=== PATIENT | female | born 1935 | race African-American/Black ===

== ENCOUNTER → 2016-04-30 | Outpatient (CLI) | payer MEDICARE ==
[2016-04-30 17:00] LABS: ABSOLUTE EOSINOPHILS # (AUTO) 0.1 10^3/uL (0.0-0.6); ABSOLUTE LYMPHOCYTES (AUTO) 1.2 10^3/uL (0.5-4.7); ABSOLUTE MONOCYTES (AUTO) 0.3 10^3/uL (0.1-1.4); ABSOLUTE NEUT (AUTO) 3.9 10^3/uL (1.7-8.2); BASOPHILS % (AUTO) 0.9 % (0-2); EOSINOPHILS % (AUTO) 1.3 % (0-6); HEMATOCRIT 27.2 % (36.0-47.0); HEMOGLOBIN 9.2 g/dL (12.0-15.5); HGB HCT DIFFERENCE 0.4; LYMPHOCYTES % (AUTO) 21.4 % (13-45); MEAN CORPUSCULAR VOLUME 97 fl (80-97); MONOCYTES % (AUTO) 6.2 % (3-13); RED BLOOD COUNT 2.79 10^6/uL (3.72-5.28); RED CELL DISTRIBUTION WIDTH 16.4 % (11.5-14.0); SEGMENTED NEUTROPHILS % (AUTO) 70.2 % (42-78); WHITE BLOOD COUNT 5.6 10^3/uL (4.0-10.5)
[2016-04-30 17:06] LABS: APPEARANCE,URINE SLIGHTLY-CLOUDY; BILIRUBIN,URINE NEGATIVE (NEGATIVE); GLUCOSE, URINE NEGATIVE (NEGATIVE); KETONES,URINE NEGATIVE (NEGATIVE); LEUKOCYTE ESTERASE,URINE LARGE (NEGATIVE); NITRITE,URINE NEGATIVE (NEGATIVE); PROTEIN,URINE NEGATIVE (NEGATIVE); URINE SPECIFIC GRAVITY 1.009; UROBILINOGEN,URINE NEGATIVE mg/dL (<2.0)
[2016-04-30 17:21] LABS: ALBUMIN 3.6 g/dL (3.5-5.0); ANION GAP 8 (5-19); BLOOD UREA NITROGEN 48 mg/dL (7-20); CALCIUM 9.4 mg/dL (8.4-10.2); CARBON DIOXIDE 32 mmol/L (22-30); CHLORIDE 98 mmol/L (98-107); CREATININE RESULT 3.72 mg/dL (0.52-1.25); GLUCOSE 109 mg/dL (75-110); PHOSPHORUS 4.6 mg/dL (2.5-4.5); POTASSIUM 4.5 mmol/L (3.6-5.0); SODIUM 138.3 mmol/L (137-145)
[2016-05-02 07:15] LABS: VITAMIN D 25-HYDROXY 33.9 ng/mL (30.0-100.0)
[2016-05-02 11:40] LABS: CREATININE URINE 55.6 mg/dL (Not Estab.); MICROALBUMIN URINE 11.4 ug/mL (Not Estab.)
== END ==
LOC: OD 15:43
PROVIDERS: ATTEND Internal Medicine Nephrology
DX: N18.4 Chronic kidney disease, stage 4 (severe) (principal); D63.1 Anemia in chronic kidney disease; N25.81 Secondary hyperparathyroidism of renal origin
CPT/HCPCS: 36415; 80048; 81001; 82040; 82043; 82306; 82570; 82728; 83540; 83550; 83970; 84100; 85025

== ENCOUNTER 2016-05-28 06:53 | Day surgery (SDC) | payer MEDICARE ==
[2016-05-25 11:39] LABS: HEMATOCRIT 27.1 % (36.0-47.0); HEMOGLOBIN 9.1 g/dL (12.0-15.5); HGB HCT DIFFERENCE 0.2; MEAN CORPUSCULAR HEMOGLOBIN 32.8 pg (27.0-33.4); MEAN CORPUSCULAR HGB CONC 33.5 g/dL (32.0-36.0); MEAN CORPUSCULAR VOLUME 98 fl (80-97); RED BLOOD COUNT 2.77 10^6/uL (3.72-5.28); RED CELL DISTRIBUTION WIDTH 17.7 % (11.5-14.0); WHITE BLOOD COUNT 5.8 10^3/uL (4.0-10.5)
[2016-05-25 11:58] LABS: ANION GAP 12 (5-19); BLOOD UREA NITROGEN 43 mg/dL (7-20); CALCIUM 9.5 mg/dL (8.4-10.2); CARBON DIOXIDE 31 mmol/L (22-30); CHLORIDE 101 mmol/L (98-107); CREATININE RESULT 3.31 mg/dL (0.52-1.25); GLUCOSE 95 mg/dL (75-110); POTASSIUM 4.8 mmol/L (3.6-5.0); SODIUM 144.4 mmol/L (137-145)
--- NOTE | 2016-05-26 16:06 | EKG REPORT ---
SEVERITY:- ABNORMAL ECG - SINUS RHYTHM FIRST DEGREE AV BLOCK BORDERLINE PROLONGED QT INTERVAL : Confirmed by: Darcy Restrepo MD 26-May-2016 16:05:23
[~2016-05-28 06:53] MED LIST: CLINDAMYCIN 600 MG/D5W RTU 600 MG/50 ML RTUPB IV PRN; LIDOCAINE 0.5% INJ-PF (5 MG/ML) 50 ML SDV INJ PRN; NORMAL SALINE 500 ML IV PRN
[2016-05-28] MEDS ORDERED: BUPIVACAINE HCL 0.25 % INJ/PF (2.5 MG/1 ML) 30 ML VIAL ONE (08:13)
[2016-05-28] MEDS ORDERED: HEPARIN SOD (PORCINE) 1,000 UNIT/ML 10 ML VIAL ONE (08:13)
[2016-05-28] MEDS ORDERED: LIDOCAINE 1% INJ-PF (10 MG/ML) 30 ML SDV ONE (08:13)
[2016-05-28] MEDS ORDERED: BACITRACIN INJ 50,000 UNIT VIAL ONE (08:13)
[2016-05-28] MEDS ORDERED: LIDOCAINE 0.5% INJ-PF (5 MG/ML) 50 ML SDV ONE (08:13)
[2016-05-28] MEDS ORDERED: MIDAZOLAM 2 MG/2 ML INJ ONE (09:01)
[2016-05-28] MEDS ORDERED: DEXMEDETOMIDINE INJ 80 MCG/20 ML VIAL IV ONE (09:02)
[2016-05-28] MEDS ORDERED: PROPOFOL INJ 200 MG/20 ML VIAL IV ONE (09:02)
[2016-05-28] MEDS ORDERED: NITROGLYCERIN/D5W 0 MG/0 ML RTUINJ IV ONE (09:19)
--- NOTE | 2016-05-28 11:07 | PDOC DISCHARGE SUMMARY ---
Discharge Summary (SDC) - Discharge Final Diagnosis: #1 end-stage renal disease. #2 diabetes mellitus. #3 rheumatoid arthritis. #4 hypertension. Date of Surgery: 05/28/16 Discharge Date: 05/28/16 Condition: Fair Treatment or Instructions: #1 activities within moderation encouraged. #2 follow up in my office by appointment in about 1 week. Call for appointment. #3 the wounds covered clean and dry until office visit. #4 hold off on school/work until evaluation in office. #5 may shower in 48 hours, keep operated area as dry as possible. #6 discharge from ambulatory when ASU criteria met. #7 medications per medication reconciliation sheet. #8 Percocet by prescription.. Also may have one Percocet up to every 4 hours when necessary for pain greater than 4 out of 10 while in the ASU Prescriptions: Oxycodone HCl/Acetaminophen [Percocet 5-325 mg Tablet] 1 tab PO ASDIR PRN #15 tab PRN Reason: Discharge Diet: Other (Comments) - Diabetic, renal. Respiratory Treatments at Home: Deep Breathing/Coughing Discharge Activity: Activity As Tolerated Report the Following to Your Physician Immediately: Shortness of Breath, Unusual Bleeding
[2016-05-28] MEDS ORDERED: FENTANYL CITRATE INJ/PF 100 MCG/2 ML AMPUL IV PRN ×3 (11:11)
[2016-05-28] MEDS ORDERED: DIPHENHYDRAMINE HCL 50 MG/ML VIAL IV PRN (11:11)
[2016-05-28] MEDS ORDERED: MEPERIDINE HCL/PF INJ 25 MG/1 ML DISP.SYRIN IV PRN (11:11)
[2016-05-28] MEDS ORDERED: PROMETHAZINE HCL INJ 25 MG/1 ML VIAL IV PRN (11:11)
[2016-05-28] MEDS ORDERED: MORPHINE SULFATE 10 MG/ML INJ IV PRN (11:11)
--- NOTE | 2016-05-28 11:12 | Operative Report ---
Operative Report DATE OF SURGERY: 05/28/16 PREOPERATIVE DIAGNOSIS: #1 end-stage renal disease. #2 diabetes mellitus. #3 rheumatoid arthritis. #4 hypertension. POSTOPERATIVE DIAGNOSIS: #1 end-stage renal disease. #2 diabetes mellitus. #3 rheumatoid arthritis. #4 hypertension. OPERATION: Insertion of right brachiocephalic fistula. SURGEON: CHI PEARSON COLLEGE SCOUTING COORDINATOR: none ANESTHESIA: LMAC TISSUE REMOVED OR ALTERED: Not applicable. COMPLICATIONS: None ESTIMATED BLOOD LOSS: 5 mL. INTRAOPERATIVE FINDINGS: Of a satisfactory cephalic vein which accommodated a 4 mm coronary dilator up to 15 cm with ease. Of a brachial artery which was moderately diseased with some atherosclerotic plaque but fairly soft. Satisfactory anastomosis with a good thrill and bruit at the end of the procedure. Doppler signals were appropriate with the slurred waveform in the proximal brachial artery and a multiphasic signal in the within the brachial artery distal to the anastomosis. Tedious rumbling bruit in the fistula. PROCEDURE: Operative Report PROCEDURE: After reviewing the procedure with the patient, [she] was taken to the operating room. The patient was sedated and the [right upper extremity] prepared with chlorhexidine and draped out with sterile linen. After the "" universal timeout", in which it was verified that the patient [received IV antibiotics] the procedure commenced. The sterilely sheathed ultrasound probe was used to evaluate the venous and arterial systems, pertinent to the previously done vein mapping. Local anesthesia was infiltrated and a transverse incision made over the upper forearm , near the antecubital fossa. Dissection proceeded through the subcutaneous tissues down to the cephalic vein. This was dissected out proximally and distally for about 3 cm. Likewise major branches. The Bicipital aponeurosis was now incised longitudinally and the brachial artery dissected out for a distance of about 1.5 cm. Rubber loops were placed on either end. The patient was given 2500 units of heparin intravenously. The deep and distal branches of the cephalic vein were clipped distally and transected. Coronary dilators were accepted [up to 4 mm]. The artery was controlled proximally and distally with rubber loops. An arteriotomy approximately [1 cm] in length was made, the artery was irrigated proximally and distally with heparinized solution. The transected vein was now spatulated , it was then anastomosed end to end to side into the brachial artery. This was done using a continuous suture of 6-0 Prolene. Controls of the fistula were now released and it was analyzed using a Doppler probe. Hemostasis was secured once optimal function was assured, the wound was irrigated with antibiotic containing solution and closed. Closure was done using interrupted 3-0 PDS for the subcutaneous tissues. The skin was closed using a continuous subcutaneous suture of 4-0 Monocryl which was reinforced with Steri-Strips over benzoin. I then left the operative field and returned with a stethoscope covered with a sterile Tegaderm dressing. This allowed external auscultation of the fistula. Auscultation was [satisfactory]. The procedure was concluded by applying a Kerlix dressing over the surgical site. DICTATING PHYSICIAN: CHI WADDELL M.D.
[2016-05-28 12:54] VITALS: BP 144/54
== END 2016-05-28 12:59 | disposition home or self-care (01) ==
LOC: OROUT 06:53
PROVIDERS: ATTEND Surgery
PROC: 05SF0ZZ Reposition Left Cephalic Vein, Open Approach (ICD-10-PCS; principal; 2016-05-28 09:00)
DX: I13.2 Hypertensive heart and chronic kidney disease with heart failure and with stage 5 chronic kidney disease, or end stage renal disease (principal); I50.9 Heart failure, unspecified; D63.1 Anemia in chronic kidney disease; E11.22 Type 2 diabetes mellitus with diabetic chronic kidney disease; N18.6 End stage renal disease; M06.9 Rheumatoid arthritis, unspecified; Z79.899 Other long term (current) drug therapy; Z79.82 Long term (current) use of aspirin; Z88.0 Allergy status to penicillin
CPT/HCPCS: 93005; 36415 ×2; 82962; 84132; 85027; 80048; 71020; 93010; 36818; J2250; J3490 ×4; J1644; J2704; 1844

== ENCOUNTER → 2016-07-16 | Outpatient (CLI) | payer MEDICARE ==
[2016-07-16 14:17] LABS: ABSOLUTE LYMPHOCYTES (AUTO) 1.2 10^3/uL (0.5-4.7); ABSOLUTE MONOCYTES (AUTO) 0.4 10^3/uL (0.1-1.4); ABSOLUTE NEUT (AUTO) 3.9 10^3/uL (1.7-8.2); BASOPHILS % (AUTO) 0.7 % (0-2); EOSINOPHILS % (AUTO) 0.1 % (0-6); HEMATOCRIT 24.3 % (36.0-47.0); HEMOGLOBIN 8.1 g/dL (12.0-15.5); LYMPHOCYTES % (AUTO) 21.5 % (13-45); MEAN CORPUSCULAR HEMOGLOBIN 33.2 pg (27.0-33.4); MEAN CORPUSCULAR HGB CONC 33.4 g/dL (32.0-36.0); MEAN CORPUSCULAR VOLUME 100 fl (80-97); MONOCYTES % (AUTO) 6.4 % (3-13); RED BLOOD COUNT 2.45 10^6/uL (3.72-5.28); RED CELL DISTRIBUTION WIDTH 18.7 % (11.5-14.0); SEGMENTED NEUTROPHILS % (AUTO) 71.3 % (42-78); WHITE BLOOD COUNT 5.5 10^3/uL (4.0-10.5)
[2016-07-16 14:31] LABS: ANION GAP 9 (5-19); BLOOD UREA NITROGEN 46 mg/dL (7-20); CALCIUM 9.4 mg/dL (8.4-10.2); CARBON DIOXIDE 29 mmol/L (22-30); CHLORIDE 100 mmol/L (98-107); CREATININE RESULT 3.17 mg/dL (0.52-1.25); GLUCOSE 154 mg/dL (75-110); PHOSPHORUS 3.6 mg/dL (2.5-4.5); POTASSIUM 4.9 mmol/L (3.6-5.0); SODIUM 138.4 mmol/L (137-145)
== END ==
LOC: OD 13:19
PROVIDERS: ATTEND Internal Medicine Nephrology
DX: N18.5 Chronic kidney disease, stage 5 (principal); N25.81 Secondary hyperparathyroidism of renal origin; D63.1 Anemia in chronic kidney disease
CPT/HCPCS: 36415; 80048; 83970; 84100; 85025

== ENCOUNTER → 2016-10-11 | Outpatient (CLI) | payer MEDICARE ==
[2016-10-11 18:10] LABS: ABSOLUTE LYMPHOCYTES (AUTO) 1.3 10^3/uL (0.5-4.7); ABSOLUTE MONOCYTES (AUTO) 0.3 10^3/uL (0.1-1.4); ABSOLUTE NEUT (AUTO) 3.4 10^3/uL (1.7-8.2); EOSINOPHILS % (AUTO) 0.9 % (0-6); HEMATOCRIT 27.8 % (36.0-47.0); HEMOGLOBIN 9.3 g/dL (12.0-15.5); HGB HCT DIFFERENCE 0.1; LYMPHOCYTES % (AUTO) 25.9 % (13-45); MEAN CORPUSCULAR HEMOGLOBIN 33.5 pg (27.0-33.4); MEAN CORPUSCULAR HGB CONC 33.6 g/dL (32.0-36.0); MEAN CORPUSCULAR VOLUME 100 fl (80-97); MONOCYTES % (AUTO) 6.4 % (3-13); RED BLOOD COUNT 2.79 10^6/uL (3.72-5.28); RED CELL DISTRIBUTION WIDTH 17.9 % (11.5-14.0); SEGMENTED NEUTROPHILS % (AUTO) 65.8 % (42-78); WHITE BLOOD COUNT 5.1 10^3/uL (4.0-10.5)
[2016-10-11 18:21] LABS: APPEARANCE,URINE SLIGHTLY-CLOUDY; BILIRUBIN,URINE NEGATIVE (NEGATIVE); GLUCOSE, URINE NEGATIVE (NEGATIVE); KETONES,URINE NEGATIVE (NEGATIVE); LEUKOCYTE ESTERASE,URINE MODERATE (NEGATIVE); NITRITE,URINE NEGATIVE (NEGATIVE); PROTEIN,URINE NEGATIVE (NEGATIVE); URINE SPECIFIC GRAVITY 1.006; UROBILINOGEN,URINE NEGATIVE mg/dL (<2.0)
[2016-10-11 18:30] LABS: ANION GAP 11 (5-19); BLOOD UREA NITROGEN 61 mg/dL (7-20); CALCIUM 9.3 mg/dL (8.4-10.2); CARBON DIOXIDE 29 mmol/L (22-30); CHLORIDE 100 mmol/L (98-107); CREATININE RESULT 3.33 mg/dL (0.52-1.25); GLUCOSE 144 mg/dL (75-110); SODIUM 139.9 mmol/L (137-145)
[2016-10-13 10:37] LABS: CREATININE URINE 45.3 mg/dL (Not Estab.); MICROALBUMIN URINE 14.4 ug/mL (Not Estab.)
== END ==
LOC: OD 17:13
PROVIDERS: ATTEND Internal Medicine Nephrology
DX: N18.4 Chronic kidney disease, stage 4 (severe) (principal); D63.1 Anemia in chronic kidney disease
CPT/HCPCS: 36415; 80048; 81001; 82043; 82570; 82728; 83540; 83550; 85025

== ENCOUNTER → 2016-11-22 | Outpatient (CLI) | payer MEDICARE ==
[2016-11-22 11:26] LABS: ABSOLUTE LYMPHOCYTES (AUTO) 1.1 10^3/uL (0.5-4.7); ABSOLUTE MONOCYTES (AUTO) 0.4 10^3/uL (0.1-1.4); ABSOLUTE NEUT (AUTO) 3.6 10^3/uL (1.7-8.2); BASOPHILS % (AUTO) 0.9 % (0-2); EOSINOPHILS % (AUTO) 0.5 % (0-6); HEMATOCRIT 26.2 % (36.0-47.0); HEMOGLOBIN 8.8 g/dL (12.0-15.5); HGB HCT DIFFERENCE 0.2; LYMPHOCYTES % (AUTO) 21.7 % (13-45); MEAN CORPUSCULAR HEMOGLOBIN 33.4 pg (27.0-33.4); MEAN CORPUSCULAR HGB CONC 33.7 g/dL (32.0-36.0); MEAN CORPUSCULAR VOLUME 99 fl (80-97); MONOCYTES % (AUTO) 8.3 % (3-13); RED BLOOD COUNT 2.64 10^6/uL (3.72-5.28); RED CELL DISTRIBUTION WIDTH 17.9 % (11.5-14.0); SEGMENTED NEUTROPHILS % (AUTO) 68.6 % (42-78); WHITE BLOOD COUNT 5.2 10^3/uL (4.0-10.5)
[2016-11-22 11:46] LABS: ANION GAP 11 (5-19); BLOOD UREA NITROGEN 78 mg/dL (7-20); CALCIUM 9.7 mg/dL (8.4-10.2); CARBON DIOXIDE 28 mmol/L (22-30); CHLORIDE 99 mmol/L (98-107); CREATININE RESULT 4.58 mg/dL (0.52-1.25); GLUCOSE 108 mg/dL (75-110); POTASSIUM 4.3 mmol/L (3.6-5.0); SODIUM 138.2 mmol/L (137-145)
== END ==
LOC: OD 10:22
PROVIDERS: ATTEND Internal Medicine Nephrology
DX: N17.9 Acute kidney failure, unspecified (principal); N18.9 Chronic kidney disease, unspecified
CPT/HCPCS: 36415; 80048; 85025

== ENCOUNTER → 2016-12-03 | Outpatient (CLI) | payer MEDICARE ==
[2016-12-04 08:41] LABS: HEPATITIS C VIRUS AB 0.2 s/co ratio (0.0-0.9)
== END ==
LOC: OD 12:42
PROVIDERS: ATTEND Internal Medicine Nephrology
DX: I13.10 Hypertensive heart and chronic kidney disease without heart failure, with stage 1 through stage 4 chronic kidney disease, or unspecified chronic kidney disease (principal); N18.5 Chronic kidney disease, stage 5; E11.9 Type 2 diabetes mellitus without complications
CPT/HCPCS: 36415; 86317; 86704; 86803; 86804; 87340

== ENCOUNTER → 2017-01-22 | Outpatient (CLI) | payer MEDICARE ==
--- NOTE | 2017-01-22 15:34 | RADIOLOGY REPORT (SQ) ---
EXAM DESCRIPTION: CT CHEST WITHOUT COMPLETED DATE/TIME: 01/22/2017 2:27 pm REASON FOR STUDY: EXPOSURE TO TB (Z20.1),BRONCHITIS (J40), PULMONARY INFILTRATE (R91.8) R91.8 OTHER NONSPECIFIC ABNORMAL FINDING OF LUNG FIELD COMPARISON: None. TECHNIQUE: CT scan performed of the chest without intravenous contrast. Images reviewed with lung, soft tissue and bone windows. Reconstructed coronal and sagittal MPR images reviewed. All images st ored on PACS. All CT scanners at this facility use dose modulation, iterative reconstruction, and/or weight based d osing when appropriate to reduce radiation dose to as low as reasonably achievable (ALARA). [facility]: Dose Right [facility]: CareDose [facility]: Dose Right [facility]: Teradose 4D [facility]: [employer] RADIATION DOSE: Up-to-date CT equipment and radiation dose reduction techniques were employed. CTDIv ol: 9.0 mGy. DLP: 329 mGy-cm. mGy. LIMITATIONS: No technical limitations. FINDINGS: LUNGS AND PLEURA: There is a subpleural calcified granuloma on the right. There is no pul monary infiltrate or pleural effusion. There appears to be mild subsegmental atelectasis the left ba se. HILAR AND MEDIASTINAL STRUCTURES: No identified masses or abnormal nodes. No obvious aneurysm. HEART AND VASCULAR STRUCTURES: No aneurysm. No pericardial effusion. UPPER ABDOMEN: No significant findings. Limited exam. THYROID AND OTHER SOFT TISSUES: No masses. No adenopathy. BONES: Thoracic spondylosis. There is a small cystic lesion in 1 of the lower thoracic vertebrae, po ssibly T9. HARDWARE: None in the chest. OTHER: No other significant findings. IMPRESSION: There is no evidence of active or prior pulmonary tuberculosis. TECHNICAL DOCUMENTATION: JOB ID: [id number] Quality ID # [id number]: Final reports with documentation of one or more dose reduction techniques (e.g., Au tomated exposure control, adjustment of the mA and/or kV according to patient size, use of iterative reconstruction technique) 2010 [employer]- All Rights Reserved
== END ==
LOC: RAD 13:58
PROVIDERS: ATTEND Internal Medicine Critical Care Medicine
DX: E11.22 Type 2 diabetes mellitus with diabetic chronic kidney disease (principal); I12.9 Hypertensive chronic kidney disease with stage 1 through stage 4 chronic kidney disease, or unspecified chronic kidney disease; N18.4 Chronic kidney disease, stage 4 (severe); Z20.1 Contact with and (suspected) exposure to tuberculosis; Z92.89 Personal history of other medical treatment; R91.8 Other nonspecific abnormal finding of lung field
CPT/HCPCS: 71250

== ENCOUNTER → 2017-01-24 | Outpatient (CLI) | payer MEDICARE ==
[2017-01-24 12:12] LABS: ABSOLUTE BASOPHILS # (AUTO) 0.1 10^3/uL (0.0-0.2); ABSOLUTE EOSINOPHILS # (AUTO) 0.3 10^3/uL (0.0-0.6); ABSOLUTE LYMPHOCYTES (AUTO) 1.5 10^3/uL (0.5-4.7); ABSOLUTE MONOCYTES (AUTO) 0.4 10^3/uL (0.1-1.4); ABSOLUTE NEUT (AUTO) 4.8 10^3/uL (1.7-8.2); BASOPHILS % (AUTO) 0.9 % (0-2); EOSINOPHILS % (AUTO) 3.6 % (0-6); HEMATOCRIT 31.1 % (36.0-47.0); HEMOGLOBIN 10.5 g/dL (12.0-15.5); HGB HCT DIFFERENCE 0.4; LYMPHOCYTES % (AUTO) 21.4 % (13-45); MEAN CORPUSCULAR HEMOGLOBIN 33.4 pg (27.0-33.4); MEAN CORPUSCULAR HGB CONC 33.7 g/dL (32.0-36.0); MEAN CORPUSCULAR VOLUME 99 fl (80-97); RED BLOOD COUNT 3.14 10^6/uL (3.72-5.28); RED CELL DISTRIBUTION WIDTH 20.3 % (11.5-14.0); SEGMENTED NEUTROPHILS % (AUTO) 68.1 % (42-78)
[2017-01-24 12:42] LABS: ALANINE AMINOTRANSFERASE 41 U/L (9-52); ALBUMIN 3.9 g/dL (3.5-5.0); ALKALINE PHOSPHATASE 108 U/L (38-126); ANION GAP 12 (5-19); ASPARTATE AMINO TRANSFERASE 34 U/L (14-36); BILIRUBIN,DIRECT 0.4 mg/dL (0.0-0.4); BILIRUBIN,TOTAL 0.5 mg/dL (0.2-1.3); BLOOD UREA NITROGEN 40 mg/dL (7-20); CALCIUM 9.2 mg/dL (8.4-10.2); CARBON DIOXIDE 32 mmol/L (22-30); CHLORIDE 99 mmol/L (98-107); CREATININE RESULT 3.53 mg/dL (0.52-1.25); GLUCOSE 73 mg/dL (75-110); POTASSIUM 4.2 mmol/L (3.6-5.0); SODIUM 143.3 mmol/L (137-145); TOTAL PROTEIN 6.7 g/dL (6.3-8.2)
== END ==
LOC: OD 11:31
PROVIDERS: ATTEND Internal Medicine Critical Care Medicine
DX: I50.9 Heart failure, unspecified (principal); I25.10 Atherosclerotic heart disease of native coronary artery without angina pectoris; D64.9 Anemia, unspecified; N18.4 Chronic kidney disease, stage 4 (severe); E11.9 Type 2 diabetes mellitus without complications; R76.11 Nonspecific reaction to tuberculin skin test without active tuberculosis; Z20.1 Contact with and (suspected) exposure to tuberculosis; Z87.448 Personal history of other diseases of urinary system
CPT/HCPCS: 36415; 80053; 85025

== ENCOUNTER → 2017-05-17 | Outpatient (CLI) | payer MEDICARE ==
[2017-05-17 11:49] LABS: ALANINE AMINOTRANSFERASE 26 U/L (9-52); ALBUMIN 3.7 g/dL (3.5-5.0); ALKALINE PHOSPHATASE 97 U/L (38-126); ASPARTATE AMINO TRANSFERASE 28 U/L (14-36); BILIRUBIN,DIRECT 0.2 mg/dL (0.0-0.4); BILIRUBIN,TOTAL 0.3 mg/dL (0.2-1.3); TOTAL PROTEIN 5.6 g/dL (6.3-8.2)
== END ==
LOC: OD 10:23
PROVIDERS: ATTEND Internal Medicine Critical Care Medicine
DX: R76.11 Nonspecific reaction to tuberculin skin test without active tuberculosis (principal); N18.4 Chronic kidney disease, stage 4 (severe); R91.8 Other nonspecific abnormal finding of lung field; Z20.1 Contact with and (suspected) exposure to tuberculosis; I50.9 Heart failure, unspecified; Z92.89 Personal history of other medical treatment; Z87.39 Personal history of other diseases of the musculoskeletal system and connective tissue
CPT/HCPCS: 36415; 80076

== ENCOUNTER 2017-06-22 23:08 | Emergency (ER) | payer MEDICARE ==
[2017-06-23] MEDS ORDERED: ONDANSETRON HCL INJ/PF 4 MG/2 ML SDV IV ONE (00:50)
--- NOTE | 2017-06-23 00:52 | ER Document Report ---
ED General - General Chief Complaint: Other Stated Complaint: DIZZINESS Time Seen by Provider: 06/23/17 00:05 Notes: Patient is an 81 year old female with a past medical history of hypertension, hyperlipidemia, diabetes, chronic kidney disease with dialysis dependence who presents with 24 hours of diarrhea, one episode of vomiting and general fatigue. Patient at the time of my assessment states that she feels "pretty good" denies any specific complaints. Her family at the bedside reports the history of vomiting and diarrhea. They do note that she has been able to tolerate oral intake today. They state that overall she has been more sluggish over the past 4-5 days they are concerned about why she has been to deteriorating. She has not missed any sessions of dialysis. They have not seen a primary care doctor regarding today's concerns. Nothing seems to improve or worsen the patient's symptoms. Family is uncertain whether or not she has had similar symptoms in the past. The patient has not a fever, cough, shortness of breath, chest pain, headache or neck pain. TRAVEL OUTSIDE OF THE [place] IN LAST 30 DAYS: No - Related Data Allergies/Adverse Reactions: Penicillins Allergy (Severe, Verified 05/25/16 09:58) dizzy Past Medical History - General Information source: Patient, Relative - Social History Smoking Status: Never Smoker Frequency of alcohol use: None Drug Abuse: None Lives with: Family Family History: Reviewed & Not Pertinent Patient has suicidal ideation: No Patient has homicidal ideation: No - Past Medical History Cardiac Medical History: Reports: Hx Congestive Heart Failure, Hx Coronary Artery Disease - murmur, Hx Hypercholesterolemia, Hx Hypertension - on meds Denies: Hx Heart Attack Pulmonary Medical History: Denies: Hx Asthma, Hx Bronchitis, Hx COPD, Hx Pneumonia, Hx Tuberculosis Neurological Medical History: Denies: Hx Cerebrovascular Accident, Hx Seizures Endocrine Medical History: Reports: Hx Diabetes Mellitus Type 1 Renal/ Medical History: Denies: Hx End Stage Renal Disease, Hx Kidney Stones, Hx Peritoneal Dialysis GI Medical History: Reports: Hx Gastroesophageal Reflux Disease. Denies: Hx Cirrhosis, Hx Ulcer Musculoskeltal Medical History: Reports Hx Arthritis - RA, Denies Hx Multiple Sclerosis Psychiatric Medical History: Denies: Hx Bipolar Disorder, Hx Depression, Hx Schizophrenia Past Surgical History: Reports: Hx Appendectomy, Hx Gynecologic Surgery - Immunizations Hx Diphtheria, Pertussis, Tetanus Vaccination: Yes Hx Pneumococcal Vaccination: 01/25/16 Review of Systems - Review of Systems Notes: Constitutional: Negative for fever. HENT: Negative for sore throat. Eyes: Negative for visual changes. Cardiovascular: Negative for chest pain. Respiratory: Negative for shortness of breath. Gastrointestinal: Negative for abdominal pain, positive for vomiting and diarrhea Genitourinary: Negative for dysuria. Musculoskeletal: Negative for back pain. Skin: Negative for rash. Neurological: Negative for headaches, weakness or numbness. 10 point ROS negative except as marked above and in HPI. Physical Exam - Vital signs Vitals: Resp BP 10 L 120/46 L 06/22/17 23:18 06/22/17 23:18 Interpretation: Normal Notes: PHYSICAL EXAMINATION: GENERAL: Appears stated age. In no acute distress HEAD: Atraumatic, normocephalic. EYES: Pupils equal round and reactive to light, extraocular movements intact, sclera anicteric, conjunctiva are normal. ENT: nares patent, oropharynx clear without exudates. Moderately dry mucous membranes. NECK: Normal range of motion, supple without lymphadenopathy LUNGS: Breath sounds clear to auscultation bilaterally and equal. No wheezes rales or rhonchi. HEART: Regular rate and rhythm, 4 out of 6 systolic ejection murmur ABDOMEN: Soft, nontender, normoactive bowel sounds. No guarding, no rebound. No masses appreciated. EXTREMITIES: Normal range of motion, no pitting or edema. No cyanosis. NEUROLOGICAL: No focal neurological deficits. Moves all extremities spontaneously and on command. PSYCH: Normal mood, normal affect. SKIN: Warm, Dry, normal turgor, no rashes or lesions noted. Course - Re-evaluation Re-evalutation: 06/23/17 00:51 Patient presents complaining of general weakness with associated diarrhea and one episode of vomiting. Family states that she has had intermittent periods of lethargy over the past several days as well as periods of hypoglycemia. They know in particular in the morning her blood sugars tend to be in the low 40s to upper 30s. She does continue to take 12 units of Lantus at night recently dropped from 14 due to these episodes of hypoglycemia. I have instructed him to please drop this down to 8 units at night and discontinue the Lantus altogether if she continues to have severe hypoglycemia in the morning. On examination the patient has no focal findings. She is alert, oriented but does fall asleep easily. Vitals within normal limits. Will obtain basic laboratories, EKG, chest x-ray, p.o. challenge the patient and ambulate her and see how she does with these measures. 06/23/17 04:24 Patient was able to ambulate without any difficulty, has tolerated oral intake without difficulty. Labs unremarkable with exception of baseline chronic kidney dysfunction. I have asked me to the patient and family the exact etiology of her symptoms is uncertain although the family notes that she has had chronic diarrhea since starting dialysis and they have been working with her broadcast maintenance engineer regarding this chronic issue. She only had one episode of vomiting. She continues to have no focal abdominal pain and has tolerated oral intake for over 1 hour. At this time will discharge with return precautions and follow-up recommendations. Verbal discharge instructions given a the bedside and opportunity for questions given. Medication warnings reviewed. Patient is in agreement with this plan and has verbalized understanding of return precautions and the need for primary care follow-up in the next 24-72 hours. - Vital Signs Vital signs: Temp Pulse Resp BP Pulse Ox 13 127/48 H 96 06/23/17 04:01 06/23/17 04:18 06/23/17 04:01 - Laboratory Result Diagrams: 06/23/17 02:10 06/23/17 02:10 Laboratory results interpreted by me: 06/23/17 06/23/17 02:10 02:10 MCV 101 H RDW 16.9 H Sodium 136.3 L Chloride 96 L BUN 42 H Creatinine 4.19 H Est GFR ( Amer) 12 L Est GFR (Non-Af Amer) 10 L Glucose 136 H AST 73 H - Diagnostic Test Radiology reviewed: Image reviewed, Reports reviewed Radiology results interpreted by me: 06/23/17 03:33 Chest x-ray: No acute infiltrate or pneumothorax - EKG Interpretation by Me Additional EKG results interpreted by me: 06/23/17 03:34 Normal sinus rhythm. Rate 60. No ST elevations or depressions. QTC is 484. First-degree AV block is present. Discharge - Discharge Clinical Impression: Vomiting and diarrhea, General weakness Chronic kidney disease Qualifiers: Chronic kidney disease stage: on chronic dialysis Qualified Code(s): N18.6 - End stage renal disease Condition: Stable Disposition: HOME, SELF-CARE Additional Instructions: The exact cause of your symptoms is uncertain but is likely secondary to the vomiting and diarrhea that you have been having. Please continue to keep hydrated try to eat when you are able. Please follow-up with your primary care doctor in the next 24-48 hours. Your labs today do not show any concerning findings other than your chronic kidney disease. Please return to emergency department if you pass out, develop chest pain, persistent vomiting, headache, or any other symptoms that are worrisome to you.
--- NOTE | 2017-06-23 01:31 | RADIOLOGY REPORT (SQ) ---
EXAM DESCRIPTION: CHEST SINGLE VIEW CLINICAL HISTORY: 81 years Female, weakness, cough COMPARISON: CT, January 22, 2017. NUMBER OF VIEWS/TECHNIQUE: 1/AP FINDINGS: Adequate lung volume, chronic small calcified granuloma of the lateral right lung field, normal cardiac silhouette, and intact bony thorax. IMPRESSION: No acute cardiopulmonary findings.
[2017-06-23 02:20] LABS: ABSOLUTE BASOPHILS # (AUTO) 0.1 10^3/uL (0.0-0.2); ABSOLUTE EOSINOPHILS # (AUTO) 0.1 10^3/uL (0.0-0.6); ABSOLUTE LYMPHOCYTES (AUTO) 1.1 10^3/uL (0.5-4.7); ABSOLUTE MONOCYTES (AUTO) 0.7 10^3/uL (0.1-1.4); ABSOLUTE NEUT (AUTO) 3.8 10^3/uL (1.7-8.2); BASOPHILS % (AUTO) 1.1 % (0-2); EOSINOPHILS % (AUTO) 1.5 % (0-6); HEMATOCRIT 40.1 % (36.0-47.0); HEMOGLOBIN 13.1 g/dL (12.0-15.5); LYMPHOCYTES % (AUTO) 19.9 % (13-45); MEAN CORPUSCULAR HEMOGLOBIN 32.9 pg (27.0-33.4); MEAN CORPUSCULAR HGB CONC 32.5 g/dL (32.0-36.0); MEAN CORPUSCULAR VOLUME 101 fl (80-97); MONOCYTES % (AUTO) 11.8 % (3-13); PLATELET COUNT 179 10^3/uL (150-450); RED BLOOD COUNT 3.97 10^6/uL (3.72-5.28); RED CELL DISTRIBUTION WIDTH 16.9 % (11.5-14.0); SEGMENTED NEUTROPHILS % (AUTO) 65.7 % (42-78); TOTAL CELLS COUNTED % (AUTO) 100 %; WHITE BLOOD COUNT 5.8 10^3/uL (4.0-10.5)
[2017-06-23 02:45] LABS: ALANINE AMINOTRANSFERASE 24 U/L (9-52); ALBUMIN 3.5 g/dL (3.5-5.0); ALKALINE PHOSPHATASE 120 U/L (38-126); ANION GAP 11 (5-19); ASPARTATE AMINO TRANSFERASE 73 U/L (14-36); BILIRUBIN,DIRECT 0.2 mg/dL (0.0-0.4); BILIRUBIN,TOTAL 0.2 mg/dL (0.2-1.3); BLOOD UREA NITROGEN 42 mg/dL (7-20); CALCIUM 8.8 mg/dL (8.4-10.2); CARBON DIOXIDE 29 mmol/L (22-30); CHLORIDE 96 mmol/L (98-107); GLUCOSE 136 mg/dL (75-110); POTASSIUM 4.4 mmol/L (3.6-5.0); SODIUM 136.3 mmol/L (137-145); TOTAL PROTEIN 6.4 g/dL (6.3-8.2)
[2017-06-23 04:20] VITALS: BP 127/48
--- NOTE | 2017-06-23 08:18 | EKG REPORT ---
SEVERITY:- ABNORMAL ECG - SINUS RHYTHM FIRST DEGREE AV BLOCK : Confirmed by: Ki Devries MD 23-Jun-2017 08:17:47
== END 2017-06-23 04:28 | disposition home or self-care (01) ==
LOC: ER 23:08
DX: N18.6 End stage renal disease (principal); R42 Dizziness and giddiness; R53.1 Weakness; R11.10 Vomiting, unspecified; R19.7 Diarrhea, unspecified; E10.22 Type 1 diabetes mellitus with diabetic chronic kidney disease; I13.2 Hypertensive heart and chronic kidney disease with heart failure and with stage 5 chronic kidney disease, or end stage renal disease; I50.9 Heart failure, unspecified; Z99.2 Dependence on renal dialysis; Z88.0 Allergy status to penicillin
CPT/HCPCS: 93005; 99285; 96374; 36415; 85025; 80053; 84484; 71045; 93010; J2405

== ENCOUNTER 2017-06-24 09:38 | Inpatient (IN) | payer MEDICARE ==
--- NOTE | 2017-06-24 10:14 | ER Document Report ---
ED Medical Screen (RME) - General Chief Complaint: Low Blood Pressure Stated Complaint: BLOOD PRESSURE ISSUES Time Seen by Provider: 06/24/17 10:13 Notes: Patient states her blood pressure was low this morning. She states she feels weak and lethargic. She says she was seen here approximate 2 days ago for similar symptoms. She denies any new medications or dosage changes. TRAVEL OUTSIDE OF THE [place] IN LAST 30 DAYS: No - Related Data Allergies/Adverse Reactions: Penicillins Allergy (Severe, Verified 06/24/17 09:42) dizzy Past Medical History - Social History Chew tobacco use (# tins/day): No Frequency of alcohol use: None Drug Abuse: None - Past Medical History Cardiac Medical History: Reports: Hx Congestive Heart Failure, Hx Coronary Artery Disease - murmur, Hx Hypercholesterolemia, Hx Hypertension - on meds Denies: Hx Heart Attack Pulmonary Medical History: Denies: Hx Asthma, Hx Bronchitis, Hx COPD, Hx Pneumonia, Hx Tuberculosis Neurological Medical History: Denies: Hx Cerebrovascular Accident, Hx Seizures Endocrine Medical History: Reports: Hx Diabetes Mellitus Type 1 Renal/ Medical History: Denies: Hx End Stage Renal Disease, Hx Kidney Stones, Hx Peritoneal Dialysis GI Medical History: Reports: Hx Gastroesophageal Reflux Disease. Denies: Hx Cirrhosis, Hx Ulcer Musculoskeltal Medical History: Reports Hx Arthritis - RA, Denies Hx Multiple Sclerosis Psychiatric Medical History: Denies: Hx Bipolar Disorder, Hx Depression, Hx Schizophrenia Past Surgical History: Reports: Hx Appendectomy, Hx Gynecologic Surgery - Immunizations Hx Diphtheria, Pertussis, Tetanus Vaccination: Yes Physical Exam - Vital signs Vitals: Temp Pulse Resp BP Pulse Ox 98.0 F 52 L 16 145/43 H 99 06/24/17 09:47 06/24/17 09:47 06/24/17 09:47 06/24/17 09:47 06/24/17 09:47 Course - Vital Signs Vital signs: Temp Pulse Resp BP Pulse Ox 98.0 F 52 L 16 145/43 H 99 06/24/17 09:47 06/24/17 09:47 06/24/17 09:47 06/24/17 09:47 06/24/17 09:47
[2017-06-24 11:03] LABS: ABSOLUTE BASOPHILS # (AUTO) 0.1 10^3/uL (0.0-0.2); ABSOLUTE EOSINOPHILS # (AUTO) 0.2 10^3/uL (0.0-0.6); ABSOLUTE LYMPHOCYTES (AUTO) 1.2 10^3/uL (0.5-4.7); ABSOLUTE MONOCYTES (AUTO) 0.4 10^3/uL (0.1-1.4); ABSOLUTE NEUT (AUTO) 3.8 10^3/uL (1.7-8.2); BASOPHILS % (AUTO) 1.3 % (0-2); EOSINOPHILS % (AUTO) 3.1 % (0-6); HEMOGLOBIN 13.4 g/dL (12.0-15.5); LYMPHOCYTES % (AUTO) 21.3 % (13-45); MEAN CORPUSCULAR HEMOGLOBIN 32.7 pg (27.0-33.4); MEAN CORPUSCULAR HGB CONC 32.6 g/dL (32.0-36.0); MEAN CORPUSCULAR VOLUME 100 fl (80-97); MONOCYTES % (AUTO) 6.6 % (3-13); PLATELET COUNT 241 10^3/uL (150-450); RED BLOOD COUNT 4.09 10^6/uL (3.72-5.28); RED CELL DISTRIBUTION WIDTH 17.6 % (11.5-14.0); SEGMENTED NEUTROPHILS % (AUTO) 67.7 % (42-78); TOTAL CELLS COUNTED % (AUTO) 100 %; WHITE BLOOD COUNT 5.7 10^3/uL (4.0-10.5)
[2017-06-24 11:59] LABS: APPEARANCE,URINE SLIGHTLY-CLOUDY; BILIRUBIN,URINE NEGATIVE (NEGATIVE); COLOR,URINE YELLOW; GLUCOSE, URINE NEGATIVE (NEGATIVE); KETONES,URINE NEGATIVE (NEGATIVE); LEUKOCYTE ESTERASE,URINE TRACE (NEGATIVE); NITRITE,URINE NEGATIVE (NEGATIVE); PROTEIN,URINE NEGATIVE (NEGATIVE); URINE SPECIFIC GRAVITY 1.013; UROBILINOGEN,URINE NEGATIVE mg/dL (<2.0)
[2017-06-24 12:46] LABS: ALANINE AMINOTRANSFERASE 22 U/L (9-52); ALBUMIN 3.9 g/dL (3.5-5.0); ALKALINE PHOSPHATASE 113 U/L (38-126); ANION GAP 14 (5-19); ASPARTATE AMINO TRANSFERASE 21 U/L (14-36); BILIRUBIN,DIRECT 0.2 mg/dL (0.0-0.4); BILIRUBIN,TOTAL 0.3 mg/dL (0.2-1.3); BLOOD UREA NITROGEN 64 mg/dL (7-20); CALCIUM 8.3 mg/dL (8.4-10.2); CARBON DIOXIDE 24 mmol/L (22-30); CHLORIDE 95 mmol/L (98-107); GLUCOSE 86 mg/dL (75-110); POTASSIUM 5.4 mmol/L (3.6-5.0); SODIUM 132.8 mmol/L (137-145); TOTAL PROTEIN 6.3 g/dL (6.3-8.2)
[2017-06-24] MEDS ORDERED: NORMAL SALINE 250 ML IV ONE (12:53)
--- NOTE | 2017-06-24 12:58 | ER Document Report ---
ED General - General Chief Complaint: Low Blood Pressure Stated Complaint: BLOOD PRESSURE ISSUES Time Seen by Provider: 06/24/17 10:13 Mode of Arrival: Medic Information source: Patient, Relative Notes: 81-year-old female presents with family with concerns of generalized weakness diarrhea of 3 week duration. Patient received dialysis Wednesdays, notes that she has not had dialysis done today. Patient denies any chest pain shortness of breath difficulty breathing. Patient overall notes that she has not been eating well or drinking well. Denies any fevers or chills TRAVEL OUTSIDE OF THE [place] IN LAST 30 DAYS: No - HPI Onset: Last week Onset/Duration: Persistent Quality of pain: No pain Severity: Mild Pain Level: Denies Associated symptoms: Diarrhea, Weakness Exacerbated by: Denies Relieved by: Denies Similar symptoms previously: No Recently seen / treated by doctor: No - Related Data Allergies/Adverse Reactions: Penicillins Allergy (Severe, Verified 06/24/17 09:42) dizzy Past Medical History - Social History Smoking Status: Never Smoker Cigarette use (# per day): No Chew tobacco use (# tins/day): No Smoking Education Provided: No Frequency of alcohol use: None Drug Abuse: None Family History: Reviewed & Not Pertinent Patient has suicidal ideation: No Patient has homicidal ideation: No - Past Medical History Cardiac Medical History: Reports: Hx Congestive Heart Failure, Hx Coronary Artery Disease - murmur, Hx Hypercholesterolemia, Hx Hypertension - on meds Denies: Hx Heart Attack Pulmonary Medical History: Denies: Hx Asthma, Hx Bronchitis, Hx COPD, Hx Pneumonia, Hx Tuberculosis Neurological Medical History: Denies: Hx Cerebrovascular Accident, Hx Seizures Endocrine Medical History: Reports: Hx Diabetes Mellitus Type 1 Renal/ Medical History: Denies: Hx End Stage Renal Disease, Hx Kidney Stones, Hx Peritoneal Dialysis GI Medical History: Reports: Hx Gastroesophageal Reflux Disease. Denies: Hx Cirrhosis, Hx Ulcer Musculoskeltal Medical History: Reports Hx Arthritis - RA, Denies Hx Multiple Sclerosis Psychiatric Medical History: Denies: Hx Bipolar Disorder, Hx Depression, Hx Schizophrenia Past Surgical History: Reports: Hx Appendectomy, Hx Gynecologic Surgery - Immunizations Hx Diphtheria, Pertussis, Tetanus Vaccination: Yes Hx Pneumococcal Vaccination: 01/25/16 Review of Systems - Review of Systems Notes: REVIEW OF SYSTEMS: CONSTITUTIONAL : Denies fever, chills, or sweats. Denies recent illness. EENT: Denies eye, ear, throat, or mouth pain or symptoms. Denies nasal or sinus congestion or discharge. Denies throat, tongue, or mouth swelling or difficulty swallowing. CARDIOVASCULAR: Denies chest pain. Denies palpitations or racing or irregular heart beat. Denies ankle edema. RESPIRATORY: Denies cough, cold, or chest congestion. Denies shortness of breath, difficulty breathing, or wheezing. GASTROINTESTINAL: Admits to diarrhea GENITOURINARY: Denies difficulty urinating, painful urination, burning, frequency, blood in urine, or discharge. FEMALE GENITOURINARY: Denies vaginal bleeding, heavy or abnormal periods, irregular periods. Denies vaginal discharge or odor. MUSCULOSKELETAL: Denies back or neck pain or stiffness. Denies joint pain or swelling. SKIN: Denies rash, lesions or sores. HEMATOLOGIC : Denies easy bruising or bleeding. LYMPHATIC: Denies swollen, enlarged glands. NEUROLOGICAL: Admits to generalized weakness PSYCHIATRIC: Denies anxiety or stress. Denies depression, suicidal ideation, or homicidal ideation. ALL OTHER SYSTEMS REVIEWED AND NEGATIVE. PHYSICAL EXAMINATION: GENERAL: Elderly female no acute distress. HEAD: Atraumatic, normocephalic. EYES: Pupils equal round and reactive to light, extraocular movements intact, conjunctiva are normal. ENT: Nares patent, oropharynx clear without exudates. Moist mucous membranes. NECK: Normal range of motion, supple without lymphadenopathy LUNGS: Breath sounds clear to auscultation bilaterally and equal. No wheezes rales or rhonchi. HEART: Regular rate and rhythm without murmurs ABDOMEN: Soft, nontender, nondistended abdomen. No guarding, no rebound. No masses appreciated. Female : deferred Musculoskeletal: Normal range of motion, no pitting or edema. No cyanosis. NEUROLOGICAL: Cranial nerves grossly intact. Normal speech, normal gait. Normal sensory, motor exams PSYCH: Normal mood, normal affect. SKIN: Warm, Dry, normal turgor, no rashes or lesions noted. Dictation was performed using [employer] voice recognition software Physical Exam - Vital signs Vitals: Temp Pulse Resp BP Pulse Ox 98.0 F 52 L 16 145/43 H 99 06/24/17 09:47 06/24/17 09:47 06/24/17 09:47 06/24/17 09:47 06/24/17 09:47 Course - Re-evaluation Re-evalutation: 06/24/17 13:[address] Hayes who will dialyse, patient loaded potassium is slightly elevated, creatinine is worsening, I do believe this is also in addition with her dehydration. Patient was given a small fluid bolus and is otherwise stable for admission 06/24/17 15:53 - Vital Signs Vital signs: Temp Pulse Resp BP Pulse Ox 98.0 F 52 L 14 139/67 H 100 06/24/17 09:47 06/24/17 09:47 06/24/17 15:16 06/24/17 15:16 06/24/17 15:16 - Laboratory Result Diagrams: 06/24/17 10:48 06/24/17 12:04 Laboratory results interpreted by me: 06/24/17 06/24/17 06/24/17 10:48 11:30 12:04 MCV 100 H RDW 17.6 H Sodium 132.8 L Potassium 5.4 H Chloride 95 L BUN 64 H Creatinine 5.17 H Est GFR ( Amer) 10 L Est GFR (Non-Af Amer) 8 L Calcium 8.3 L Ur Leukocyte Esterase TRACE H - Diagnostic Test Radiology reviewed: Image reviewed, Reports reviewed Discharge - Discharge Clinical Impression: Vomiting and diarrhea, General weakness Chronic kidney disease Qualifiers: Chronic kidney disease stage: on chronic dialysis Qualified Code(s): N18.6 - End stage renal disease; Z99.2 - Dependence on renal dialysis; Z99.2 - Dependence on renal dialysis; Z99.2 - Dependence on renal dialysis; Z99.2 - Dependence on renal dialysis Condition: Stable Disposition: ADMITTED OBSERVATION Admitting Provider: Hospitalist Unit Admitted: Telemetry
[2017-06-24] MEDS ORDERED: ONDANSETRON HCL INJ/PF 4 MG/2 ML SDV IV PRN (13:37)
[2017-06-24] MEDS ORDERED: DEXTROSE 50%-WATER 25 GM/50 ML DISP.SYRIN IV PRN ×2 (13:45)
[2017-06-24] MEDS ORDERED: DEXTROSE 40% GEL 15 GM TUBE PO PRN ×2 (13:45)
[2017-06-24] MEDS ORDERED: INSULIN LISPRO 100 UNIT/ML 3 ML VIAL SUBCUT PRN (13:45)
[2017-06-24] MEDS ORDERED: GLUCAGON,HUMAN RECOMB 1 MG INJ IM PRN (13:45)
--- NOTE | 2017-06-24 13:59 | PDOC H&P ---
History of Present Illness Admission Date/PCP: JESSICA MANZANARES MD History of Present Illness: STEVE HERNANDEZ is a 81 year old black female patient with PMH of DM, HTN, CH, ESRD on hemodialysis,, RA, HLD and questionable dementia. She is brought by family members with chief complaint of weakness, decreased activity and on and off confusion. Of note patient has history of watery diarrhea for the last 6 months. Patient is also supposed to have her dialysis today. She denies nausea , vomiting, abdominal pain or melanotic stools. No urinary complaints. She has dizziness but no headache or blurry vision. No dyspnea, orthopnea paroxysmal nocturnal dyspnea. Her compressor operator adjuster to is consulted. Her initial workup shows mild hyponatremia with sodium of 132, mild apical hyperkalemia with a potassium of 5.4 and her creatinine is 5.17. Her chest x- ray showed pulmonary congestion. Past Medical History Cardiac Medical History: Reports: Congestive Heart Failure, Coronary Artery Disease - murmur, Hyperlipidema, Hypertension - on meds Denies: Myocardial Infarction Pulmonary Medical History: Denies: Asthma, Bronchitis, Chronic Obstructive Pulmonary Disease (COPD), Pneumonia, Tuberculosis Neurological Medical History: Denies: Seizures Endocrine Medical History: Reports: Diabetes Mellitus Type 1 Renal/ Medical History: Denies: End Stage Renal Disease GI Medical History: Reports: Gastroesophageal Reflux Disease Denies: Cirrhosis Musculoskeltal Medical History: Reports: Arthritis - RA Psychiatric Medical History: Denies: Bipolar Disorder, Depression Hematology: Reports: Anemia - hx of Denies: Bleeding Tendencies Past Surgical History Past Surgical History: Reports: Appendectomy Social History Smoking Status: Never Smoker Frequency of Alcohol Use: None Family History Family History: Reviewed & Not Pertinent Parental Family History Reviewed: Yes Children Family History Reviewed: Yes Sibling(s) Family History Reviewed.: Yes Medication/Allergy Home Medications: Allopurinol 100 mg PO DAILY 03/12/15 Aspirin [Ecotrin 81 mg EC Tablet] 81 mg PO DAILY 03/12/15 Atorvastatin Calcium 40 mg PO QHS 03/12/15 Carvedilol 25 mg PO BID 03/12/15 Folic Acid 1 mg PO QAM 03/12/15 Gabapentin 600 mg PO TID 03/12/15 Hydroxychloroquine Sulfate [Plaquenil 200 mg Tablet] 200 mg PO QAM 03/12/15 Insulin Glargine,Hum.rec.anlog [Lantus Insulin 100 Unit/mL] 12 units SQ QAM 04/26 Magnesium Oxide 400 mg PO DAILY 03/12/15 Methotrexate Sodium [Methotrexate] 5 mg PO WE 03/12/15 Multivit,Iron,Minerals/Lutein [Theratrum Complete Tablet] 1 tab PO DAILY Omeprazole 40 mg PO DAILY 03/12/15 Sertraline HCl 200 mg PO QAM 03/12/15 Epoetin Beau [Procrit Inj 20,000 Unit/1 ml Vial (Renal)] 20,000 unit SUBCUT WE # 0 ml 03/17/15 Ferrous Sulfate [Feosol 325 mg Tablet] 325 mg PO BIDPCBS tablet 03/17/15 Amlodipine Besylate [Norvasc 10 mg Tablet] 10 mg PO QAM #30 tablet 03/21/15 Calcitriol 1 cap PO DAILY 08/26/15 Furosemide [Lasix 20 mg Tablet] 40 mg PO BID 08/26/15 Oxycodone HCl/Acetaminophen [Percocet 5-325 mg Tablet] 1 tab PO ASDIR PRN #15 tab 05/28/16 Allergies/Adverse Reactions: Penicillins Allergy (Severe, Verified 06/24/17 09:42) dizzy Review of Systems Constitutional: PRESENT: as per HPI Eyes: PRESENT: as per HPI Gastrointestinal: PRESENT: diarrhea Neurological: PRESENT: as per HPI Physical Exam Vital Signs: Temp Pulse Resp BP Pulse Ox 98.0 F 52 L 16 145/43 H 100 06/24/17 09:47 06/24/17 09:47 06/24/17 09:47 06/24/17 09:47 06/24/17 10:38 Intake & Output 06/23/17 06/24/17 06/25/17 06:59 06:59 06:59 Weight 73.4 kg Results Laboratory Results: 06/24/17 10:48 06/24/17 12:04 06/24/17 06/24/17 06/24/17 10:48 10:48 11:30 WBC 5.7 RBC 4.09 Hgb 13.4 Hct 41.0 MCV 100 H MCH 32.7 MCHC 32.6 RDW 17.6 H Plt Count 241 Seg Neutrophils % 67.7 Lymphocytes % 21.3 Monocytes % 6.6 Eosinophils % 3.1 Basophils % 1.3 Absolute Neutrophils 3.8 Absolute Lymphocytes 1.2 Absolute Monocytes 0.4 Absolute Eosinophils 0.2 Absolute Basophils 0.1 Sodium Cancelled Potassium Cancelled Chloride Cancelled Carbon Dioxide Cancelled Anion Gap Cancelled BUN Cancelled Creatinine Cancelled Est GFR ( Amer) Cancelled Est GFR (Non-Af Amer) Cancelled Glucose Cancelled Calcium Cancelled Total Bilirubin AST ALT Alkaline Phosphatase Total Protein Albumin Urine Color YELLOW Urine Appearance SLIGHTLY-CLOUDY Urine pH 5.0 Ur Specific Burton 1.013 Urine Protein NEGATIVE Urine Glucose (UA) NEGATIVE Urine Ketones NEGATIVE Urine Blood NEGATIVE Urine Nitrite NEGATIVE Ur Leukocyte Esterase TRACE H Urine WBC (Auto) 3 Urine RBC (Auto) 1 06/24/17 12:04 WBC RBC Hgb Hct MCV MCH MCHC RDW Plt Count Seg Neutrophils % Lymphocytes % Monocytes % Eosinophils % Basophils % Absolute Neutrophils Absolute Lymphocytes Absolute Monocytes Absolute Eosinophils Absolute Basophils Sodium 132.8 L Potassium 5.4 H Chloride 95 L Carbon Dioxide 24 Anion Gap 14 BUN 64 H Creatinine 5.17 H Est GFR ( Amer) 10 L Est GFR (Non-Af Amer) 8 L Glucose 86 Calcium 8.3 L Total Bilirubin 0.3 AST 21 ALT 22 Alkaline Phosphatase 113 Total Protein 6.3 Albumin 3.9 Urine Color Urine Appearance Urine pH Ur Specific Burton Urine Protein Urine Glucose (UA) Urine Ketones Urine Blood Urine Nitrite Ur Leukocyte Esterase Urine WBC (Auto) Urine RBC (Auto) Assessment & Plan - Diagnosis (1) Hyperkalemia Is this a current diagnosis for this admission?: Yes Plan: It is mild I do not feel there is a need for intervention most probably to be corrected after dialysis. (2) Diarrhea Qualifiers: Diarrhea type: unspecified type Qualified Code(s): R19.7 - Diarrhea, unspecified Is this a current diagnosis for this admission?: Yes Plan: This is chronic diarrhea that has been going on for the last 6 months. At this time the etiology is unclear. We will do stool for WBC and culture. Empirically I will start her on Cipro and Flagyl. (3) Diabetes 1.5, managed as type 2 Is this a current diagnosis for this admission?: Yes Plan: I will continue his Lantus 20 units subcu every morning daily and will put her also on sliding scale. (4) End stage renal disease Is this a current diagnosis for this admission?: Yes Plan: Per compressor operator adjuster. (5) Rheumatoid arthritis Is this a current diagnosis for this admission?: Yes Plan: Continue her Plaquenil - Time Time Spent: 30 to 50 Minutes - Inpatient Certification Medical Necessity: Need Close Monitoring Due to Risk of Patient Decompensation
[2017-06-24] MEDS ORDERED: OXYCODONE-ACETAMINOPHEN 5-325 MG TABLET PO ONE (14:00)
--- NOTE | 2017-06-24 14:20 | RADIOLOGY REPORT (SQ) ---
EXAM DESCRIPTION: CHEST SINGLE VIEW COMPLETED DATE/TIME: 06/24/2017 2:09 pm REASON FOR STUDY: dialysis patient COMPARISON: 06/23/2017. EXAM PARAMETERS: NUMBER OF VIEWS: One view. TECHNIQUE: Single frontal radiographic view of the chest acquired. RADIATION DOSE: NA LIMITATIONS: None. FINDINGS: LUNGS AND PLEURA: No opacities, masses or pneumothorax. No pleural effusion. MEDIASTINUM AND HILAR STRUCTURES: No masses. Contour normal. HEART AND VASCULAR STRUCTURES: Heart upper limits of normal in size. Normal vasculature. BONES: No acute findings. Degenerative changes in the shoulders. HARDWARE: None in the chest. OTHER: No other significant finding. IMPRESSION: NO ACUTE RADIOGRAPHIC FINDING IN THE CHEST. TECHNICAL DOCUMENTATION: JOB ID: [id number] [employer]- All Rights Reserved Reading location - IP/workstation name: [email or web address]
--- NOTE | 2017-06-24 15:09 | EKG REPORT ---
SEVERITY:- NORMAL ECG - SINUS RHYTHM : Confirmed by: Alicja Oh 24-Jun-2017 15:07:55
[2017-06-24] MEDS ORDERED: NORMAL SALINE 1000 ML 1,000 ML IV PRN (18:53)
--- NOTE | 2017-06-24 19:24 | PDOC CONSULTATION ---
Consultation Consult Date: 06/24/17 Attending physician:: ARMINDA GARCIA Consult reason:: I was asked to see this patient due to hyperkalemia in a patient with ESRD requiring dialysis today. History of Present Illness Admission Date/PCP: 06/24/17 13:59 JESSICA MANZANARES MD History of Present Illness: STEVE HERNANDEZ is a 81 year old female known to me with history of end-stage renal disease on hemodialysis 3 times a week, hypertension, diabetes mellitus type 2, anemia of chronic kidney disease and coronary artery disease who was brought in by the family today because the patient has been weak and lethargic associated with diarrhea. Patient is not very reliable in terms of the history because initially she told me her blood pressure was elevated and she was feeling weak with some diarrhea this patient was brought into the hospital. However when her daughter came in she told me that the patient has been weak because she has been having low blood pressure and has not been eating or drinking much over the weekend. According to the daughter the patient has been having diarrhea chronically for several months although the patient told me it has only been for couple weeks. I have been seeing this patient at [facility] every week at least during dialysis and she has not mentioned anything about this diarrhea. Patient said that her primary care provider, Dr. Manzanares has given her some medication which apparently did not work. Last Saturday when she got up her blood pressure was low and her blood sugar was into the 50's so the family brought her to the emergency room. She was discharged home after treating the acute issue. However she continues to be weak and continues to have diarrhea. She denies any nausea, vomiting, abdominal pain, no fever. She denies any chest pains, no shortness of breath. Daughter reports vomiting on Saturday though. Her appetite was decreased and there was decrease intake confirmed by the daughter. I am seeing the patient on dialysis currently and her blood pressure is actually elevated and not low. Patient is awake and answering questions. So far she is tolerating dialysis well without any issues. Past Medical History Cardiac Medical History: Reports: CHF-Diastolic, Coronary Artery Disease - murmur, Hyperlipidemia, Hypertension-primary Endocrine Medical History: Reports: Diabetes Mellitus Type 2 Renal/ Medical History: Reports: End Stage Renal Disease, Hyperphosphatemia, Proteinuria, Secondary Hyperparathyroidism GI Medical History: Reports: Gastroesophageal Reflux Disease Musculoskeltal Medical History: Reports: Arthritis - RA Hematology Medical History: Reports Anemia of Chronic Kidney Disease, Reports Iron Deficiency Anemia Past Surgical History Past Surgical History: Reports: Appendectomy, Dialysis Access Surgery AVF, Other - Breast lumpectomy Social History Information Source: Relative, [facility] Records Lives with: Alone - Patient just moved in the [place] and has her own apartment although her daughters are around her. Smoking Status: Never Smoker Frequency of Alcohol Use: None Hx Recreational Drug Use: No Hx Prescription Drug Abuse: No Family History Family History: CAD - Mother, DM - Mother, Hypertension - Mother Parental Family History Reviewed: Yes Children Family History Reviewed: Yes Sibling(s) Family History Reviewed.: Yes Medication/Allergy Home Medications: Allopurinol 100 mg PO DAILY 03/12/15 Aspirin [Ecotrin 81 mg EC Tablet] 81 mg PO DAILY 03/12/15 Atorvastatin Calcium 40 mg PO QHS 03/12/15 Folic Acid 1 mg PO QAM 03/12/15 Gabapentin 600 mg PO Q8 03/12/15 Hydroxychloroquine Sulfate [Plaquenil 200 mg Tablet] 200 mg PO BIDBS 03/12/15 Insulin Glargine,Hum.rec.anlog [Lantus Insulin 100 Unit/mL] 14 units SQ QAM 04/26 Methotrexate Sodium [Methotrexate] 5 mg PO WE@1800 03/12/15 Sertraline HCl 100 mg PO QAM 03/12/15 Carvedilol [Coreg 25 mg Tablet] 25 mg PO Q12 06/24/17 Cyanocobalamin/FA/Pyridoxine [Folbee Tablet] 1 tab PO DAILY 06/24/17 Donepezil HCl [Aricept 5 mg Tablet] 5 mg PO DAILY 06/24/17 Esomeprazole Magnesium [Nexium] 40 mg PO ACBRKFST 06/24/17 Furosemide [Lasix 40 mg Tablet] 40 mg PO DAILY 06/24/17 Insulin Aspart [Novolog Flexpen] 0 unit SQ .SLIDING SCALE 06/24/17 Isoniazid [Isoniazid 300 mg Tablet] 300 mg PO DAILY 06/24/17 Pyridoxine HCl [Vitamin B-6] 50 mg PO DAILY 06/24/17 Allergies/Adverse Reactions: Penicillins Allergy (Severe, Verified 06/24/17 09:42) dizzy Review of Systems All systems: reviewed and no additional remarkable complaints except as stated Review of Systems: Constitutional: ABSENT: chills, fever(s), headache(s), weight gain, weight loss ; admits generalized weakness and fatigue, decreased appetite Eyes: ABSENT: visual disturbances Ears: ABSENT: hearing changes Cardiovascular: ABSENT: chest pain, dyspnea on exertion, edema, orthropnea, palpitations Respiratory: ABSENT: cough, dyspnea, hemoptysis Gastrointestinal: ABSENT: abdominal pain, constipation, hematemesis, hematochezia, nausea, vomiting; admits diarrhea Genitourinary: ABSENT: dysuria, hematuria Musculoskeletal: ABSENT: joint swelling Integumentary: ABSENT: rash, wounds Neurological: ABSENT: abnormal gait, abnormal speech, confusion, dizziness, focal weakness, numbness, syncope Psychiatric: ABSENT: anxiety, depression Endocrine: ABSENT: cold intolerance, heat intolerance, polydipsia, polyuria Hematologic/Lymphatic: ABSENT: easy bleeding, easy bruising, lymphadenopathy Physical Exam Vital Signs: Temp Pulse Resp BP Pulse Ox 98.0 F 52 L 14 139/67 H 100 06/24/17 09:47 06/24/17 09:47 06/24/17 15:16 06/24/17 15:16 06/24/17 15:16 Current vitals during dialysis: Blood pressure 198/81, heart rate of 59, blood flow rate of 350 mL/min, dialysate flow rate of 800 mL/min. Exam: General appearance: no acute distress, cooperative, fragile looking Head exam: PRESENT: atraumatic, normocephalic Eye exam: PRESENT: Conjunctiva slightly pale, EOMI, PERRLA. ABSENT: conjunctival injection, scleral icterus Mouth exam: PRESENT: moist, neck supple, tongue midline Neck exam: PRESENT: full ROM. ABSENT: carotid bruit, JVD, lymphadenopathy, thyromegaly Respiratory exam: PRESENT: Diminished to auscultation bilaterally. ABSENT: rales, rhonchi, stridor, wheezes Cardiovascular exam: PRESENT: RRR, +S1, +S2. ABSENT: systolic murmur Pulses: PRESENT: normal radial pulses, normal dorsalis pedis pulses GI/Abdominal exam: PRESENT: normal bowel sounds, soft. ABSENT: guarding, mass, tenderness Rectal exam: deferred Extremities exam: PRESENT: full ROM. ABSENT: calf tenderness, pedal edema Musculoskeletal: PRESENT: full ROM. ABSENT: deformity Neurological exam: PRESENT: alert, Awake, Oriented to person, Oriented to place , Oriented to time, reflexes normal, CN II-XII grossly intact. ABSENT: motor sensory deficit Psychiatric exam: PRESENT: appropriate affect, normal mood. ABSENT: homicidal ideation, suicidal ideation Skin exam: PRESENT: intact, dry, warm. ABSENT: rash Results Impressions: Chest X-Ray 06/24/17 13:35 IMPRESSION: NO ACUTE RADIOGRAPHIC FINDING IN THE CHEST. Assessment & Plan - Diagnosis (1) General weakness Is this a current diagnosis for this admission?: Yes Plan: Possibly due to ongoing chronic diarrhea with possible acute exacerbation. (2) Chronic diarrhea Is this a current diagnosis for this admission?: Yes Plan: Unclear etiology. Workup ordered per hospitalist service. Patient started on empiric IV ciprofloxacin and metronidazole. Recommend to discontinue Nexium or PPI in view of his chronic diarrhea just in case it is contributing. (3) End stage renal disease Is this a current diagnosis for this admission?: Yes Plan: We will do dialysis today for 3 hours, using the patient's AV fistula, with 2 potassium bath, blood flow rate of 350 mL per minute, dialysate flow rate of 800 mL per minute, ultrafiltration 2 L only, and no Procrit during dialysis. Patient will be monitored throughout dialysis treatment. We will continue dialysis support and adjust treatment as necessary during his hospitalization. (4) Hyperkalemia Is this a current diagnosis for this admission?: Yes (5) HTN (hypertension) Qualifiers: Hypertension type: essential hypertension Qualified Code(s): I10 - Essential (primary) hypertension Is this a current diagnosis for this admission?: Yes Plan: Resume patient's blood pressure medications and adjust accordingly. (6) Diabetes mellitus type 2 in nonobese Is this a current diagnosis for this admission?: Yes - Notes Notes: Thank you very much for this consultation. I will follow the patient with you. - Time Time Spent: 50 to 70 Minutes
[2017-06-24] MEDS: HEPARIN SOD (PORCINE) 5,000 UNIT/ML 1 ML SYRINGE SUBCUT SCH (21:50)
[2017-06-24] MEDS: METRONIDAZOLE 500 MG/NS RTU 100 ML IV SCH (21:52)
[2017-06-24] MEDS: CIPROFLOXACIN 400 MG/D5W RTU 400 MG/200 ML RTUPB IV SCH (23:53)
[2017-06-25] MEDS: METRONIDAZOLE 500 MG/NS RTU 100 ML IV SCH ×4 (01:31→21:36)
[2017-06-25] MEDS: HEPARIN SOD (PORCINE) 5,000 UNIT/ML 1 ML SYRINGE SUBCUT SCH ×4 (01:32→21:36)
[2017-06-25] MEDS: LANSOPRAZOLE 30 MG TAB.RAP.DR PO SCH (05:34)
[2017-06-25 06:32] LABS: ABSOLUTE EOSINOPHILS # (AUTO) 0.1 10^3/uL (0.0-0.6); ABSOLUTE LYMPHOCYTES (AUTO) 1.4 10^3/uL (0.5-4.7); ABSOLUTE MONOCYTES (AUTO) 0.3 10^3/uL (0.1-1.4); ABSOLUTE NEUT (AUTO) 2.1 10^3/uL (1.7-8.2); BASOPHILS % (AUTO) 0.9 % (0-2); HEMATOCRIT 36.6 % (36.0-47.0); HEMOGLOBIN 12.2 g/dL (12.0-15.5); LYMPHOCYTES % (AUTO) 34.9 % (13-45); MEAN CORPUSCULAR HGB CONC 33.3 g/dL (32.0-36.0); MEAN CORPUSCULAR VOLUME 99 fl (80-97); PLATELET COUNT 177 10^3/uL (150-450); RED CELL DISTRIBUTION WIDTH 17.1 % (11.5-14.0); SEGMENTED NEUTROPHILS % (AUTO) 53.2 % (42-78); TOTAL CELLS COUNTED % (AUTO) 100 %; WHITE BLOOD COUNT 3.9 10^3/uL (4.0-10.5)
[2017-06-25 06:49] LABS: ALANINE AMINOTRANSFERASE 31 U/L (9-52); ALKALINE PHOSPHATASE 111 U/L (38-126); ANION GAP 8 (5-19); ASPARTATE AMINO TRANSFERASE 25 U/L (14-36); BILIRUBIN,DIRECT 0.2 mg/dL (0.0-0.4); BILIRUBIN,TOTAL 0.2 mg/dL (0.2-1.3); CALCIUM 8.4 mg/dL (8.4-10.2); CARBON DIOXIDE 31 mmol/L (22-30); CHLORIDE 98 mmol/L (98-107); GLUCOSE 103 mg/dL (75-110); SODIUM 136.8 mmol/L (137-145); TOTAL PROTEIN 5.1 g/dL (6.3-8.2)
[2017-06-25 06:58] LABS: BLOOD UREA NITROGEN 35 mg/dL (7-20); POTASSIUM 4.1 mmol/L (3.6-5.0)
[2017-06-25] MEDS ORDERED: INSULIN GLARGINE,HUM.REC.ANLOG 1,000 UNIT/10 ML UNIT SUBCUT SCH (08:00)
--- NOTE | 2017-06-25 12:49 | Physician Advisory Note ---
Physician Advisor ProgressNote .: Pursuant to the plan for Filipe Abraham, I have reviewed the medical record for this patient. Physician Advisor Statement: Nice documentation of mild hyponatremia. Please consider documenting, if you agree: 1. "chronic diastolic CHF and mod pulmonary HTN" (by 2016 TTE) 2. "possible " (dx reason for IV abx - bacterial colitis? UTI? sepsis due to ____ & evidenced by ___, ruled out/in? ...) 3. Medical necessity: reason(s) THIS pt needs to be Inpatient THIS stay, each day the reason(s) pt not safe to go home yet - Ex: "New leukopenia of unclear cause", "persistent/recurrent hypoglycemia ", "I AM CONCERNED about ", "Not yet able to tolerate adequate po intake ", " is not yet back to baseline", ... 4. ? - "possible adverse effect of [medication(s)], causing " - Aricept -> bradycardia, nausea, dizziness, anorexia, presyncope, somnolence, ... - Lasix -> volume depletion, hyponatremia, ... - Coreg -> hypotension, bradycardia - Lantus -> hypoglycemia ... Status: Immune-compromised 81yo pt (ESRD on HD & MTX/Plaquenil for RA), w/ underlying chr diast CHF w/pulm congestion on CXR but clinically hypotensive/ intravascularly volume depleted so very cautious w/IVF, very sensitive to fluid shifts due to ESRD/dialysis needs, attending holding her beta karli due to reported hypotension & persistent bradycardia, holding her usual Lasix due to GI fluid losses, watching glc.s on 2units less Lantus per day, holding Isoniazide & pyridoxine, .... Failed outpt mgmt (seen in ED on Sat & sent home per nursing note). Also holding Aricept & Neurontin. Has now developed leukopenia, which is worrisome for possible worsening infxn. Recurrent hypoglycemia. Pt high risk for serious decompensations, very medically complex. Agree w/Inpt status. CK
[2017-06-25] MEDS ORDERED: LOPERAMIDE HCL 2 MG CAPSULE PO PRN (13:26)
[2017-06-25] MEDS ORDERED: LOPERAMIDE HCL 2 MG CAPSULE PO ONE (13:26)
--- NOTE | 2017-06-25 15:32 | PDOC PROGRESS REPORT ---
Subjective Progress Note for:: 06/25/17 Subjective:: She has no current complaints. She is eating breakfast and appears comfortable. Most of the conversation was between me and her daughter. Daughter reports that she has had over a month possibly over 2 months of continuous diarrhea. No nausea or vomiting. No blood is been noted. She was tried on Questran without significant effect. Reason For Visit: HYPERKALEMIA, WEAKNESS Physical Exam Vital Signs: Temp Pulse Resp BP Pulse Ox 97.4 F 67 16 168/52 H 100 06/25/17 12:11 06/25/17 14:00 06/25/17 12:11 06/25/17 12:11 06/25/17 12:11 Intake & Output 06/24/17 06/25/17 06/26/17 06:59 06:59 06:59 Intake Total 840 Output Total 2300 Balance -1460 Weight 71.5 kg General appearance: PRESENT: no acute distress Respiratory exam: PRESENT: clear to auscultation kylee Cardiovascular exam: PRESENT: RRR GI/Abdominal exam: PRESENT: soft Neurological exam: PRESENT: alert, oriented to person. ABSENT: oriented to place, oriented to time, oriented to situation Psychiatric exam: PRESENT: normal mood Skin exam: PRESENT: warm Results Laboratory Results: 06/25/17 05:23 06/25/17 05:23 06/25/17 06/25/17 06/25/17 00:30 05:23 05:23 WBC 3.9 L RBC 3.70 L Hgb 12.2 Hct 36.6 MCV 99 H MCH 33.0 MCHC 33.3 RDW 17.1 H Plt Count 177 Seg Neutrophils % 53.2 Lymphocytes % 34.9 Monocytes % 8.0 Eosinophils % 3.0 Basophils % 0.9 Absolute Neutrophils 2.1 Absolute Lymphocytes 1.4 Absolute Monocytes 0.3 Absolute Eosinophils 0.1 Absolute Basophils 0.0 Sodium 136.8 L Potassium 4.1 D Chloride 98 Carbon Dioxide 31 H Anion Gap 8 BUN 35 H D Creatinine 3.16 H Est GFR ( Amer) 17 L Est GFR (Non-Af Amer) 14 L Glucose 103 Calcium 8.4 Total Bilirubin 0.2 AST 25 ALT 31 Alkaline Phosphatase 111 Total Protein 5.1 L Albumin 3.0 L Stool for White Cells NO WBCs SEEN C. difficile was negative Impressions: Chest X-Ray 06/24/17 13:35 IMPRESSION: NO ACUTE RADIOGRAPHIC FINDING IN THE CHEST. Assessment & Plan - Diagnosis (1) Chronic diarrhea Is this a current diagnosis for this admission?: Yes Plan: Trial of Imodium. (2) ESRD (end stage renal disease) on dialysis Is this a current diagnosis for this admission?: Yes Plan: Dialysis per nephrology (3) Diabetes mellitus type 2 in nonobese Is this a current diagnosis for this admission?: Yes Plan: Continue home medications and cover with sliding scale insulin (4) Hyperkalemia Is this a current diagnosis for this admission?: Yes Plan: Resolved (5) Rheumatoid arthritis Is this a current diagnosis for this admission?: Yes Plan: Continue home medications (6) Anemia in chronic kidney disease Qualifiers: Chronic kidney disease stage: on chronic dialysis Qualified Code(s): N18.6 - End stage renal disease; D63.1 - Anemia in chronic kidney disease; D63.1 - Anemia in chronic kidney disease; Z99.2 - Dependence on renal dialysis; Z99.2 - Dependence on renal dialysis; Z99.2 - Dependence on renal dialysis; Z99.2 - Dependence on renal dialysis Is this a current diagnosis for this admission?: Yes Plan: Stable (7) HTN (hypertension) Qualifiers: Hypertension type: essential hypertension Qualified Code(s): I10 - Essential (primary) hypertension Is this a current diagnosis for this admission?: Yes Plan: Continue home meds (8) Dementia Qualifiers: Dementia type: Alzheimer's disease Dementia behavioral disturbance: without behavioral disturbance Is this a current diagnosis for this admission?: Yes
--- NOTE | 2017-06-25 16:21 | PDOC PROGRESS REPORT ---
Subjective Progress Note for:: 06/25/17 Subjective:: Patient tells me that she feels better today. She has one formed bowel movement today. She denies any nausea, vomiting, no abdominal pain. She is eating solid food and drinking fluids. Incidentally she complains of left shoulder pain. She relates that she fell at home 3 weeks ago and since then has been having pain in her left shoulder with limited movement. Reason For Visit: HYPERKALEMIA, WEAKNESS Physical Exam Vital Signs: Temp Pulse Resp BP Pulse Ox 98.2 F 66 16 136/57 H 100 06/25/17 16:15 06/25/17 16:15 06/25/17 16:15 06/25/17 16:15 06/25/17 16:15 Intake & Output 06/24/17 06/25/17 06/26/17 06:59 06:59 06:59 Intake Total 840 Output Total 2300 Balance -1460 Weight 71.5 kg Exam: General appearance: PRESENT: no acute distress, cooperative, well-developed, well-nourished Head exam: PRESENT: atraumatic, normocephalic Eye exam: PRESENT: conjunctiva pink, PERRLA. ABSENT: scleral icterus Neck exam: ABSENT: JVD Respiratory exam: PRESENT: Normal breath sounds. ABSENT: crackles, rales, rhonchi, unlabored, wheezes Cardiovascular exam: PRESENT: Regular rate rhythm -+S1, +S2. ABSENT: diastolic murmur, systolic murmur GI/Abdominal exam: PRESENT: normal bowel sounds, soft. ABSENT: guarding, mass, tenderness Extremities exam: ABSENT: No edema; she has some left shoulder tenderness and she has limited abduction and forward i. Neurological exam: PRESENT: alert, awake, oriented to person, place and time. Skin exam: PRESENT: dry, warm, Results Laboratory Results: 06/25/17 05:23 06/25/17 05:23 06/25/17 06/25/17 06/25/17 00:30 05:23 05:23 WBC 3.9 L RBC 3.70 L Hgb 12.2 Hct 36.6 MCV 99 H MCH 33.0 MCHC 33.3 RDW 17.1 H Plt Count 177 Seg Neutrophils % 53.2 Lymphocytes % 34.9 Monocytes % 8.0 Eosinophils % 3.0 Basophils % 0.9 Absolute Neutrophils 2.1 Absolute Lymphocytes 1.4 Absolute Monocytes 0.3 Absolute Eosinophils 0.1 Absolute Basophils 0.0 Sodium 136.8 L Potassium 4.1 D Chloride 98 Carbon Dioxide 31 H Anion Gap 8 BUN 35 H D Creatinine 3.16 H Est GFR ( Amer) 17 L Est GFR (Non-Af Amer) 14 L Glucose 103 Calcium 8.4 Total Bilirubin 0.2 AST 25 ALT 31 Alkaline Phosphatase 111 Total Protein 5.1 L Albumin 3.0 L Stool for White Cells NO WBCs SEEN Impressions: Chest X-Ray 06/24/17 13:35 IMPRESSION: NO ACUTE RADIOGRAPHIC FINDING IN THE CHEST. Assessment & Plan - Diagnosis (1) General weakness Is this a current diagnosis for this admission?: Yes Plan: Possibly due to ongoing chronic diarrhea with possible acute exacerbation. Improving. (2) Chronic diarrhea Is this a current diagnosis for this admission?: Yes Plan: Unclear etiology. Workup ordered per hospitalist service. Patient started on empiric IV ciprofloxacin and metronidazole. Recommend to discontinue Nexium or PPI in view of his chronic diarrhea just in case it is contributing. Bowel movement is performed today is improved. C. difficile was negative. (3) End stage renal disease Is this a current diagnosis for this admission?: Yes Plan: Plan for dialysis tomorrow. (4) Hyperkalemia Is this a current diagnosis for this admission?: Yes Plan: Resolved with dialysis. (5) HTN (hypertension) Qualifiers: Hypertension type: essential hypertension Qualified Code(s): I10 - Essential (primary) hypertension Is this a current diagnosis for this admission?: Yes Plan: Resume patient's blood pressure medications and adjust accordingly. (6) Diabetes mellitus type 2 in nonobese Is this a current diagnosis for this admission?: Yes (7) Left shoulder pain Qualifiers: Chronicity: acute Qualified Code(s): M25.512 - Pain in left shoulder Is this a current diagnosis for this admission?: Yes Plan: Secondary to a fall. Obtain left shoulder x-rays today. - Time Time with patient: 15-25 minutes
[2017-06-25] MEDS: CIPROFLOXACIN 400 MG/D5W RTU 400 MG/200 ML RTUPB IV SCH (17:32)
--- NOTE | 2017-06-25 17:53 | RADIOLOGY REPORT (SQ) ---
EXAM DESCRIPTION: SHOULDER LEFT 2 OR MORE VIEWS COMPLETED DATE/TIME: 06/25/2017 5:13 pm REASON FOR STUDY: pain with limited motion COMPARISON: None. NUMBER OF VIEWS: Three views. TECHNIQUE: Internal rotation, external rotation, and Y view images acquired of the left shoulder. LIMITATIONS: None. FINDINGS: MINERALIZATION: Osteopenia. BONES: No acute fracture dislocation. Osteophytes are present on the inferior aspect of the humeral head. JOINTS: There is narrowing of the glenohumeral joint. The humeral head is displaced superiorly and t here is pseudoarthrosis with the acromion. VISUALIZED LUNGS AND RIBS: No pneumothorax. No rib fracture. SOFT TISSUES: No radiopaque foreign body. OTHER: No other significant finding. IMPRESSION: Glenohumeral degenerative joint disease. Longstanding rotator cuff disease. No acute a bnormality. TECHNICAL DOCUMENTATION: JOB ID: [id number] [employer]- All Rights Reserved Reading location - IP/workstation name: [email or web address]
[2017-06-26] MEDS: METRONIDAZOLE 500 MG/NS RTU 100 ML IV SCH ×3 (03:46→14:12)
[2017-06-26] MEDS ORDERED: NORMAL SALINE 1000 ML 1,000 ML IV PRN (05:00)
[2017-06-26 05:45] LABS: HEMATOCRIT 34.4 % (36.0-47.0); HEMOGLOBIN 11.3 g/dL (12.0-15.5); MEAN CORPUSCULAR HEMOGLOBIN 32.7 pg (27.0-33.4); MEAN CORPUSCULAR HGB CONC 32.9 g/dL (32.0-36.0); MEAN CORPUSCULAR VOLUME 99 fl (80-97); PLATELET COUNT 181 10^3/uL (150-450); RED BLOOD COUNT 3.46 10^6/uL (3.72-5.28); RED CELL DISTRIBUTION WIDTH 16.8 % (11.5-14.0); WHITE BLOOD COUNT 4.9 10^3/uL (4.0-10.5)
[2017-06-26] MEDS: HEPARIN SOD (PORCINE) 5,000 UNIT/ML 1 ML SYRINGE SUBCUT SCH ×2 (05:52→14:12)
[2017-06-26] MEDS: LANSOPRAZOLE 30 MG TAB.RAP.DR PO SCH (05:52)
[2017-06-26 06:04] LABS: ANION GAP 9 (5-19); CALCIUM 8.4 mg/dL (8.4-10.2); CARBON DIOXIDE 26 mmol/L (22-30); CHLORIDE 99 mmol/L (98-107); GLUCOSE 79 mg/dL (75-110); POTASSIUM 4.8 mmol/L (3.6-5.0); SODIUM 134.1 mmol/L (137-145)
[2017-06-26 06:16] LABS: BLOOD UREA NITROGEN 58 mg/dL (7-20)
[2017-06-26] MEDS ORDERED: INSULIN GLARGINE,HUM.REC.ANLOG 300 UNIT/3 ML INSULN.PEN SUBCUT SCH (08:00)
[2017-06-26] MEDS ORDERED: ISONIAZID 300 MG TABLET PO SCH (10:00)
[2017-06-26] MEDS ORDERED: PYRIDOXINE HCL 50 MG TABLET PO SCH (10:00)
[2017-06-26] MEDS ORDERED: ASPIRIN 81 MG TABLET, ENT COATED PO SCH (10:00)
[2017-06-26] MEDS ORDERED: CYANOCOBALAMIN/FA/PYRIDOXINE TABLET PO SCH (10:00)
[2017-06-26] MEDS ORDERED: ALLOPURINOL 100 MG TABLET PO SCH (10:00)
[2017-06-26] MEDS ORDERED: PYRIDOXINE HCL 50 MG PO SCH (10:00)
[2017-06-26] MEDS ORDERED: DONEPEZIL HCL 5 MG TABLET PO SCH (10:00)
[2017-06-26] MEDS ORDERED: FUROSEMIDE 40 MG TABLET PO SCH (10:00)
[2017-06-26] MEDS ORDERED: CARVEDILOL 12.5 MG TABLET PO SCH (10:00)
[2017-06-26] MEDS ORDERED: SERTRALINE HCL 50 MG TABLET PO SCH (10:00)
[2017-06-26] MEDS ORDERED: GABAPENTIN 300 MG CAPSULE PO SCH (14:00)
--- NOTE | 2017-06-26 15:18 | PDOC DISCHARGE SUMMARY ---
General - Admit/Disc Date/PCP Admission Date/Primary Care Provider: 06/24/17 13:59 JESSICA MANZANARES MD Discharge Date: 06/26/17 - Discharge Diagnosis (1) Chronic diarrhea Is this a current diagnosis for this admission?: Yes Summary: No etiology identified. Probably a combination of uremia and medications she takes for rheumatoid arthritis. Symptomatic treatment with Imodium was effective. (2) ESRD (end stage renal disease) on dialysis Is this a current diagnosis for this admission?: Yes Summary: Dialyzed per nephrology (3) Diabetes mellitus type 2 in nonobese Is this a current diagnosis for this admission?: Yes Summary: Continue home medications (4) Hyperkalemia Is this a current diagnosis for this admission?: Yes Summary: Resolved with dialysis. (5) Rheumatoid arthritis Is this a current diagnosis for this admission?: Yes Summary: Continue home medications (6) Anemia in chronic kidney disease Is this a current diagnosis for this admission?: Yes Summary: Stable (7) HTN (hypertension) Is this a current diagnosis for this admission?: Yes Summary: Stable. Continue home medications (8) Dementia Is this a current diagnosis for this admission?: Yes Summary: Stable. Continue home medications - Additional Information Resuscitation Status: Full Code Discharge Diet: As Tolerated Discharge Activity: Activity As Tolerated Home Medications: Allopurinol 100 mg PO DAILY 03/12/15 Aspirin [Ecotrin 81 mg EC Tablet] 81 mg PO DAILY 03/12/15 Atorvastatin Calcium 40 mg PO QHS 03/12/15 Folic Acid 1 mg PO QAM 03/12/15 Gabapentin 600 mg PO Q8 03/12/15 Hydroxychloroquine Sulfate [Plaquenil 200 mg Tablet] 200 mg PO BIDBS 03/12/15 Insulin Glargine,Hum.rec.anlog [Lantus Insulin 100 Unit/mL] 14 units SQ QAM 04/26 Methotrexate Sodium [Methotrexate] 5 mg PO WE@1800 03/12/15 Sertraline HCl 100 mg PO QAM 03/12/15 Carvedilol [Coreg 25 mg Tablet] 25 mg PO Q12 06/24/17 Cyanocobalamin/FA/Pyridoxine [Folbee Tablet] 1 tab PO DAILY 06/24/17 Donepezil HCl [Aricept 5 mg Tablet] 5 mg PO DAILY 06/24/17 Esomeprazole Magnesium [Nexium] 40 mg PO ACBRKFST 06/24/17 Furosemide [Lasix 40 mg Tablet] 40 mg PO DAILY 06/24/17 Insulin Aspart [Novolog Flexpen] 0 unit SQ .SLIDING SCALE 06/24/17 Isoniazid [Isoniazid 300 mg Tablet] 300 mg PO DAILY 06/24/17 Pyridoxine HCl [Vitamin B-6] 50 mg PO DAILY 06/24/17 Loperamide HCl [Imodium 2 mg Capsule] 2 mg PO ASDIR PRN capsule 06/26/17 History of Present Illness Patient complains of: Weakness and diarrhea History of Present Illness: STEVE HERNANDEZ is a 81 year old female with PMH of DM, HTN, CH, ESRD on hemodialysis,, RA, HLD and questionable dementia. She is brought by family members with chief complaint of weakness, decreased activity and on and off confusion. Of note patient has history of watery diarrhea for the last 6 months. Patient is also supposed to have her dialysis today. She denies nausea , vomiting, abdominal pain or melanotic stools. No urinary complaints. She has dizziness but no headache or blurry vision. No dyspnea, orthopnea paroxysmal nocturnal dyspnea. Her hamper maker machine to is consulted. Her initial workup shows mild hyponatremia with sodium of 132, mild apical hyperkalemia with a potassium of 5.4 and her creatinine is 5.17. Her chest x- ray showed pulmonary congestion. Hospital Course Hospital Course: Hospital course: She was admitted stool studies were negative for infection. She was started on Imodium with good effect. She was seen in consultation by nephrology who dialyzed her. Otherwise her home medications have been continued. She is feeling better, and after discussion with her family we will send her home. Physical Exam Vital Signs: Temp Pulse Resp BP Pulse Ox 97.3 F 62 16 152/49 H 100 06/26/17 11:32 06/26/17 14:00 06/26/17 11:32 06/26/17 11:32 06/26/17 11:32 Intake & Output 06/25/17 06/26/17 06/27/17 06:59 06:59 06:59 Intake Total 840 1588 Output Total 2300 Balance -1460 1588 Weight 71.5 kg 73.6 kg General appearance: PRESENT: no acute distress Respiratory exam: PRESENT: clear to auscultation kylee Cardiovascular exam: PRESENT: RRR GI/Abdominal exam: PRESENT: soft Musculoskeletal exam: PRESENT: normal inspection Neurological exam: PRESENT: alert, oriented to person Psychiatric exam: PRESENT: appropriate affect, normal mood Skin exam: PRESENT: warm Results Laboratory Results: 06/26/17 05:15 06/26/17 05:15 06/26/17 06/26/17 05:15 05:15 WBC 4.9 RBC 3.46 L Hgb 11.3 L Hct 34.4 L MCV 99 H MCH 32.7 MCHC 32.9 RDW 16.8 H Plt Count 181 Sodium 134.1 L Potassium 4.8 Chloride 99 Carbon Dioxide 26 Anion Gap 9 BUN 58 H D Creatinine 4.25 H Est GFR ( Amer) 12 L Est GFR (Non-Af Amer) 10 L Glucose 79 Calcium 8.4 Impressions: Chest X-Ray 06/24/17 13:35 IMPRESSION: NO ACUTE RADIOGRAPHIC FINDING IN THE CHEST. Shoulder X-Ray 06/25/17 00:00 IMPRESSION: Glenohumeral degenerative joint disease. Longstanding rotator cuff disease. No acute abnormality. Qualifiers - * PATEINT BEING DISCHARGED WITH ANY OF THE FOLLOWING DIAGNOSIS?: No Plan Discharge Plan: She is to continue dialysis per her usual schedule. Diet and activity as tolerated. Current Medications Generic Name Dose Route Start Last Admin Trade Name Miltonq PRN Reason Stop Dose Admin Allopurinol 100 mg 06/26/17 10:00 06/26/17 09:46 Zyloprim 100 Mg Tablet PO 07/26/17 09:59 100 mg DAILY HARSHIL Administration Aspirin 81 mg 06/26/17 10:00 06/26/17 09:47 Ecotrin 81 Mg Ec Tablet PO 07/26/17 09:59 81 mg DAILY HARSHIL Administration Atorvastatin Calcium 40 mg 06/26/17 22:00 Lipitor 40 Mg Tablet PO 07/26/17 21:59 QHS HARSHIL Carvedilol 25 mg 06/26/17 10:00 06/26/17 09:47 Coreg 12.5 Mg Tablet PO 07/26/17 09:59 25 mg Q12 HARSHIL Administration Donepezil HCl 5 mg 06/26/17 10:00 06/26/17 09:46 Aricept 5 Mg Tablet PO 07/26/17 09:59 5 mg DAILY HARSHIL Administration Folic Acid 1 tab 06/26/17 10:00 06/26/17 09:52 Folbee Tablet PO 07/26/17 09:59 1 tab DAILY HARSHIL Administration Folic Acid 1 mg 06/27/17 08:00 Folvite 1 Mg Tablet PO 07/27/17 07:59 QAM HARSHIL Furosemide 40 mg 06/26/17 10:00 06/26/17 09:46 Lasix 40 Mg Tablet PO 07/26/17 09:59 40 mg DAILY HARSHIL Administration Gabapentin 600 mg 06/26/17 14:00 06/26/17 14:12 Neurontin 300 Mg Capsule PO 07/26/17 13:59 Not Given Q8 HARSHIL Hydroxychloroquine Sulfate 200 mg 06/26/17 17:00 Plaquenil 200 Mg Tablet PO 07/26/17 16:59 BIDBS [facility] Insulin Glargine 12 unit 06/26/17 08:00 06/26/17 09:05 Lantus Insulin Inj 300 Unit/3 Ml Pen SUBCUT 07/26/17 07:59 12 unit QAM HARSHIL Administration Insulin Human Lispro 0 - 12 unit 06/24/17 13:45 Humalog Insulin 100 Unit/1 Ml 3 Ml Vial SUBCUT 07/24/17 13:44 ACBRKFSTP PRN PER PROTOCOL Protocol Isoniazid 300 mg 06/26/17 10:00 06/26/17 09:52 Isoniazid 300 Mg Tablet PO 07/26/17 09:59 300 mg DAILY HARSHIL Administration Lansoprazole 30 mg 06/25/17 06:00 06/26/17 05:52 Prevacid 30 Mg Odt Tablet PO 07/25/17 05:59 30 mg Q6AM HARSHIL Administration Loperamide HCl 2 mg 06/25/17 13:26 Imodium 2 Mg Capsule PO 07/25/17 13:25 Q4HP PRN DIARRHEA Methotrexate 5 mg 06/26/17 18:00 Rheumatrex 2.5 Mg Tablet PO 07/26/17 17:59 WE@1800 [facility] Pyridoxine HCl 50 mg 06/26/17 10:00 06/26/17 09:46 Vitamin B-6 Tablet 50 Mg PO 07/26/17 09:59 50 mg DAILY HARSHIL Administration Sertraline HCl 100 mg 06/26/17 10:00 06/26/17 09:46 Zoloft 50 Mg Tablet PO 07/26/17 09:59 100 mg DAILY HARSHIL Administration Time Spent: Greater than 30 Minutes
--- NOTE | 2017-06-26 16:41 | PDOC PROGRESS REPORT ---
Subjective Progress Note for:: 06/26/17 Subjective:: I saw the patient during dialysis this afternoon. He tolerated dialysis well with ultrafiltration only 1 L. She has not had any diarrhea for the last 48 hours. She is taking Imodium. She otherwise denies any other complaints including nausea, vomiting, no abdominal pain. Overall she is doing better. Reason For Visit: HYPERKALEMIA, WEAKNESS Physical Exam Vital Signs: Temp Pulse Resp BP Pulse Ox 97.3 F 62 16 152/49 H 100 06/26/17 11:32 06/26/17 14:00 06/26/17 11:32 06/26/17 11:32 06/26/17 11:32 Intake & Output 06/25/17 06/26/17 06/27/17 06:59 06:59 06:59 Intake Total 840 1588 Output Total 2300 Balance -1460 1588 Weight 71.5 kg 73.6 kg Vitals at the end of dialysis: Blood pressure 147/55, heart rate of 66, temperature of 97.9, blood flow of 350 mL/min, dialysate flow of 600 mL/min. Exam: General appearance: PRESENT: no acute distress, cooperative, well-developed, well-nourished Head exam: PRESENT: atraumatic, normocephalic Eye exam: PRESENT: conjunctiva pink, PERRLA. ABSENT: scleral icterus Neck exam: ABSENT: JVD Respiratory exam: PRESENT: Diminished breath sounds. ABSENT: crackles, rales, rhonchi, unlabored, wheezes Cardiovascular exam: PRESENT: Regular rate rhythm -+S1, +S2. ABSENT: diastolic murmur, systolic murmur GI/Abdominal exam: PRESENT: normal bowel sounds, soft. ABSENT: guarding, mass, tenderness Extremities exam: ABSENT: No edema; she has limitation of motion of her left arm because of pain in her left shoulder. Neurological exam: PRESENT: alert, awake, oriented to person, place and time. Skin exam: PRESENT: dry, warm, Results Laboratory Results: 06/26/17 05:15 06/26/17 05:15 06/26/17 06/26/17 05:15 05:15 WBC 4.9 RBC 3.46 L Hgb 11.3 L Hct 34.4 L MCV 99 H MCH 32.7 MCHC 32.9 RDW 16.8 H Plt Count 181 Sodium 134.1 L Potassium 4.8 Chloride 99 Carbon Dioxide 26 Anion Gap 9 BUN 58 H D Creatinine 4.25 H Est GFR ( Amer) 12 L Est GFR (Non-Af Amer) 10 L Glucose 79 Calcium 8.4 Impressions: Chest X-Ray 06/24/17 13:35 IMPRESSION: NO ACUTE RADIOGRAPHIC FINDING IN THE CHEST. Shoulder X-Ray 06/25/17 00:00 IMPRESSION: Glenohumeral degenerative joint disease. Longstanding rotator cuff disease. No acute abnormality. Assessment & Plan - Diagnosis (1) General weakness Is this a current diagnosis for this admission?: Yes Plan: Possibly due to ongoing chronic diarrhea with possible acute exacerbation. Improving. (2) Chronic diarrhea Is this a current diagnosis for this admission?: Yes Plan: Unclear etiology. Workup ordered per hospitalist service. Patient given empiric IV ciprofloxacin and metronidazole. Recommend to discontinue Nexium or PPI in view of his chronic diarrhea just in case it is contributing. Bowel movement is formed today is improved. C. difficile was negative. (3) End stage renal disease Is this a current diagnosis for this admission?: Yes Plan: We did dialysis today for 3 hours, using the patient's AV fistula, with 2 potassium bath, blood flow rate of 350 mL per minute, dialysate flow rate of 600 mL per minute, ultrafiltration 1 L, no heparin and no Procrit during dialysis. Patient tolerated dialysis well. (4) Hyperkalemia Is this a current diagnosis for this admission?: Yes Plan: Resolved with dialysis. (5) HTN (hypertension) Qualifiers: Hypertension type: essential hypertension Qualified Code(s): I10 - Essential (primary) hypertension Is this a current diagnosis for this admission?: Yes Plan: Resume patient's blood pressure medications and adjust accordingly. (6) Diabetes mellitus type 2 in nonobese Is this a current diagnosis for this admission?: Yes (7) Left shoulder pain Qualifiers: Chronicity: acute Qualified Code(s): M25.512 - Pain in left shoulder Is this a current diagnosis for this admission?: Yes Plan: Shoulder x-ray showed glenohumeral degenerative joint disease and long-standing rotator cuff disease. No intervention needed at this time. - Notes Notes: From nephrology standpoint patient can be discharged home today. Patient to continue her regular hemodialysis treatment schedule as an outpatient at [facility]. Next dialysis will be on Saturday. - Time Time with patient: 15-25 minutes
[2017-06-26 16:44] VITALS: BP 156/52
[2017-06-26] MEDS ORDERED: HYDROXYCHLOROQUINE SULFATE 200 MG TABLET PO SCH (17:00)
[2017-06-26] MEDS ORDERED: METHOTREXATE SODIUM 2.5 MG TABLET PO SCH (18:00)
[2017-06-26] MEDS ORDERED: ATORVASTATIN CALCIUM 40 MG TABLET PO SCH (22:00)
[2017-06-27] MEDS ORDERED: FOLIC ACID 1 MG TABLET PO SCH (08:00)
== END 2017-06-26 18:01 | disposition home or self-care (01) | DRG 683 ==
LOC: ER 09:38 → OBSVTOIN 13:59 → EH 13:59 → 3S 21:00
PROVIDERS: ADMIT Internal Medicine; ATTEND Internal Medicine
PROC: 5A1D70Z Performance of Urinary Filtration, Intermittent, Less than 6 Hours Per Day (ICD-10-PCS; principal; 2017-06-24)
PROC: 5A1D70Z Performance of Urinary Filtration, Intermittent, Less than 6 Hours Per Day (ICD-10-PCS; 2017-06-26)
DX: N18.6 End stage renal disease (principal); I13.2 Hypertensive heart and chronic kidney disease with heart failure and with stage 5 chronic kidney disease, or end stage renal disease; E87.1 Hypo-osmolality and hyponatremia; I50.32 Chronic diastolic (congestive) heart failure; E10.22 Type 1 diabetes mellitus with diabetic chronic kidney disease; E87.5 Hyperkalemia; I25.10 Atherosclerotic heart disease of native coronary artery without angina pectoris; E78.00 Pure hypercholesterolemia, unspecified; D63.1 Anemia in chronic kidney disease; R19.7 Diarrhea, unspecified; M25.512 Pain in left shoulder; M06.9 Rheumatoid arthritis, unspecified; F03.90 Unspecified dementia, unspecified severity, without behavioral disturbance, psychotic disturbance, mood disturbance, and anxiety; Z99.2 Dependence on renal dialysis; Z88.0 Allergy status to penicillin; Z79.82 Long term (current) use of aspirin; Z79.899 Other long term (current) drug therapy; Z79.4 Long term (current) use of insulin
CPT/HCPCS: 36415; 71045; 80048; 80053; 81001; 82962; 84484; 85025; 85027; 87040; 87045; 87205; 87493; 89055; 93005; 93010; 99285; J0744; J1644; J1815; J3490

== ENCOUNTER → 2017-12-19 | Outpatient (CLI) | payer MEDICARE ==
[2017-12-19 11:39] LABS: APPEARANCE,URINE CLOUDY; BILIRUBIN,URINE SMALL (NEGATIVE); GLUCOSE, URINE NEGATIVE (NEGATIVE); KETONES,URINE NEGATIVE (NEGATIVE); LEUKOCYTE ESTERASE,URINE SMALL (NEGATIVE); NITRITE,URINE NEGATIVE (NEGATIVE); PROTEIN,URINE 30 mg/dL (NEGATIVE)
[2017-12-19 11:41] LABS: COLOR,URINE YELLOW
== END ==
LOC: OD 10:15
PROVIDERS: ATTEND Internal Medicine Nephrology
DX: R30.0 Dysuria (principal)
CPT/HCPCS: 81001; 87086; 87088; 87186

== ENCOUNTER → 2018-07-31 | Outpatient (CLI) | payer MEDICARE ==
--- NOTE | 2018-07-31 15:01 | RADIOLOGY REPORT (SQ) ---
EXAM DESCRIPTION: VENOUS UNILATERAL LOWER COMPLETED DATE/TIME: 07/31/2018 2:46 pm REASON FOR STUDY: RLE SWELLING R22.40 LOCALIZED SWELLING, MASS AND LUMP, UNSPECIFIED LOWER COMPARISON: None. TECHNIQUE: Dynamic and static harris scale and color images acquired of the right leg venous system. S elected spectral images acquired with additional compression and augmentation maneuvers. The contrala teral common femoral vein and saphenofemoral junction were also imaged. Images stored on PACS. LIMITATIONS: None. FINDINGS: COMMON FEMORAL: Normal phasicity, compression and augmentation. No visualized echogenic ma terial on harris scale. No defects on color images. FEMORAL: Normal compression and augmentation. No visualized echogenic material on harris scale. No defe cts on color images. POPLITEAL: Normal compression, augmentation. No visualized echogenic material on harris scale. No defec ts on color images. CALF VESSELS: Normal compression, augmentation. No visualized echogenic material on harris scale. No de fects on color images. GSV and SSV: Normal compression, augmentation. No visualized echogenic material on harris scale. No def ects on color images. ANY DEEP VENOUS INSUFFICIENCY: Not evaluated. ANY EVIDENCE OF POPLITEAL CYST: No. OTHER: No other significant finding. CONTRALATERAL COMMON FEMORAL VEIN AND SAPHENOFEMORAL JUNCTION: Normal phasicity, compression and augmentation. No visualized echogenic material on harris scale. No de fects on color images. IMPRESSION: NO EVIDENCE DVT OR SVT IN THE RIGHT LEG. TECHNICAL DOCUMENTATION: JOB ID: [id number] [employer]- All Rights Reserved Reading location - IP/workstation name: [email or web address]
== END ==
LOC: SP 12:56
PROVIDERS: ATTEND Internal Medicine Nephrology
DX: R22.40 Localized swelling, mass and lump, unspecified lower limb (principal)
CPT/HCPCS: 93971

== ENCOUNTER → 2018-09-22 | Outpatient (CLI) | payer MEDICARE ==
--- NOTE | 2018-09-23 19:01 | EKG REPORT ---
SEVERITY:- ABNORMAL ECG - SINUS BRADYCARDIA 39/MIN WITH IDIOVENTRICULAR RHYTHM 39/MIN COMPETING. : Confirmed by: Ki Devries MD 23-Sep-2018 19:01:22
== END ==
LOC: OD 14:24
PROVIDERS: ATTEND Physician Assistant Medical
DX: R00.1 Bradycardia, unspecified (principal)
CPT/HCPCS: 93005; 93010

== ENCOUNTER 2018-09-24 12:12 | Observation (INO) | payer MEDICARE ==
--- NOTE | 2018-09-24 12:58 | ER Document Report ---
ED General - General Chief Complaint: Arrhythmia Stated Complaint: WEAKNESS Time Seen by Provider: 09/24/18 12:47 Primary Care Provider: ELVIS GUEVARA PA-C [ALLIED HEALTH PROFESSIONAL] - Follow up as needed Notes: 82-year-old -[place] female to emergency department chief complaint of not feeling well. Patient is a renal failure patient on dialysis. Heart patient for CHF. Followed by Dr. Ohara with cardiology in [facility]. Has not been feeling well for several days. Went to dialysis today and they noted that her heart rate was in the 30s. Dialysis was stopped and patient was sent here. Currently patient states that she just feels tired and weak. Currently her heart rates are in the mid 40s. Sats are 99%. She denies any chest pain. TRAVEL OUTSIDE OF THE [place] IN LAST 30 DAYS: No - HPI Onset: Yesterday Onset/Duration: Gradual, Constant Quality of pain: No pain Severity: Mild Pain Level: Denies Associated symptoms: Weakness Exacerbated by: Standing - Related Data Allergies/Adverse Reactions: Penicillins Allergy (Severe, Verified 06/24/17 09:42) dizzy Past Medical History - General Information source: Patient, Relative, [facility], 1928–1983 Records - Social History Smoking Status: Never Smoker Chew tobacco use (# tins/day): No Frequency of alcohol use: None Drug Abuse: None Lives with: Alone Family History: Reviewed & Not Pertinent Patient has suicidal ideation: No Patient has homicidal ideation: No - Past Medical History Cardiac Medical History: Reports: Hx Congestive Heart Failure, Hx Coronary Artery Disease - murmur, Hx Hypercholesterolemia, Hx Hypertension - on meds Denies: Hx Heart Attack Pulmonary Medical History: Denies: Hx Asthma, Hx Bronchitis, Hx COPD, Hx Pneumonia, Hx Tuberculosis Neurological Medical History: Denies: Hx Cerebrovascular Accident, Hx Seizures Endocrine Medical History: Reports: Hx Diabetes Mellitus Type 1, Hx Diabetes Mellitus Type 2 Renal/ Medical History: Reports: Hx End Stage Renal Disease. Denies: Hx Kidney Stones, Hx Peritoneal Dialysis GI Medical History: Reports: Hx Gastroesophageal Reflux Disease. Denies: Hx Cirrhosis, Hx Ulcer Musculoskeletal Medical History: Reports Hx Arthritis - RA, Denies Hx Multiple Sclerosis Psychiatric Medical History: Reports: Hx Depression - anxiety Denies: Hx Bipolar Disorder, Hx Schizophrenia Past Surgical History: Reports: Hx Appendectomy, Hx Gynecologic Surgery, Other - Breast lumpectomy - Immunizations Hx Diphtheria, Pertussis, Tetanus Vaccination: Yes Hx Pneumococcal Vaccination: 01/25/16 Review of Systems - Review of Systems Notes: Constitutional: denies: Chills, Diaphoresis, Fever, Malaise, +Weakness EENT: denies: Eye discharge, Blurred vision, Tearing, Double vision, Nose congestion, Nose discharge, Throat swelling, Mouth pain Cardiovascular: denies: Palpitations, Heart racing, Orthopnea, Dyspnea, Chest pain Respiratory: denies: Cough, Hurts to breathe, Wheezing, Shortness of breath Gastrointestinal: denies: Abdominal pain, Diarrhea, Nausea, Vomiting, Black sto ols, bright red blood in stool Genitourinary: denies: Burning, Dysuria, Discharge, Frequency, Flank pain, Hematuria Musculoskeletal: denies: Joint pain, Joint swelling, Muscle pain, Muscle stiffness, back pain Hematologic/Lymphatic: denies: Anemia, Easy bleeding, Easy bruising, Blood clots Neurological/Psychological: denies: Confusion, Dementia, Depression, Loss of consciousness Skin: No lesions, no masses, no skin breakdown, no abscesses Physical Exam - Vital signs Vitals: Resp 13 09/24/18 12:22 Interpretation: Bradycardic - General General appearance: Appears well, Alert - HEENT Head: Normocephalic, Atraumatic Eyes: Normal Pupils: PERRL - Respiratory Respiratory status: No respiratory distress Chest status: Nontender Breath sounds: Normal Chest palpation: Normal - Cardiovascular Rhythm: Regular, Bradycardia Heart sounds: Normal auscultation Murmur: Yes Systolic murmur grade 1-6: 3 - Abdominal Inspection: Normal Distension: No distension Bowel sounds: Normal Tenderness: Nontender Organomegaly: No organomegaly - Back Back: Normal, Nontender - Extremities General upper extremity: Normal inspection, Nontender, Normal color, Normal ROM, Normal temperature, Other - Positive thrill and bruit to the right upper extremity consistent with the AV fistula site. General lower extremity: Normal inspection, Nontender, Normal color, Normal ROM, Normal temperature. No: Mahesh's sign - Neurological Neuro grossly intact: Yes Cognition: Normal Orientation: AAOx4 [place]iana Coma Scale Eye Opening: Spontaneous [place] Coma Scale Verbal: Oriented [place] Coma Scale Motor: Obeys Commands [place] Coma Scale Total: 15 Speech: Normal Motor strength normal: LUE, RUE, LLE, RLE Sensory: Normal - Psychological Associated symptoms: Normal affect, Normal mood - Skin Skin Temperature: Warm Skin Moisture: Dry Skin Color: Normal Course - Re-evaluation Re-evalutation: 09/24/18 13:39 Patient likely experiencing dramatic bradycardia. She may need be evaluated by cardiology. I have not picked up any heart rates below 45. EKG shows a sinus bradycardia with PVCs. Pending labs. Will contact her customer acquisition specialist 09/24/18 15:[address] Zhang with cardiology at [facility]. He recommends admitting the patient here for a beta-karli washout. Apparently patient is actually on 25 of Coreg twice daily. Patient remained stable. Think this is reasonable plan. If her heart rates continue to drop and she may need to be transferred. 09/24/18 15:48 Have spoken with the hospitalist, Dr. Durbin who will admit. I will also contact her quill skinner to let her know that she is here in the event that she needs dialysis. Laboratory 09/24/18 09/24/18 09/24/18 13:13 13:13 13:13 WBC 4.5 RBC 3.54 L Hgb 11.9 L Hct 35.8 L MCV 101 H MCH 33.6 H MCHC 33.1 RDW 16.3 H Plt Count 165 Seg Neutrophils % 65.7 Lymphocytes % 21.6 Monocytes % 6.9 Eosinophils % 3.7 Basophils % 2.1 H Absolute Neutrophils 3.0 Absolute Lymphocytes 1.0 Absolute Monocytes 0.3 Absolute Eosinophils 0.2 Absolute Basophils 0.1 Sodium 135.2 L Potassium 4.5 Chloride 95 L Carbon Dioxide 30 Anion Gap 10 BUN 32 H Creatinine 4.30 H Est GFR ( Amer) 12 L Est GFR (Non-Af Amer) 10 L Glucose 160 H Calcium 8.7 Total Bilirubin 0.4 Direct Bilirubin 0.4 Neonat Total Bilirubin Not Reportable Neonat Direct Bilirubin Not Reportable Neonat Indirect Bili Not Reportable AST 29 ALT 26 Alkaline Phosphatase 104 Troponin I 0.014 Total Protein 6.5 Albumin 3.7 Urine Color Urine Appearance Urine pH Ur Specific [place] Urine Protein Urine Glucose (UA) Urine Ketones Urine Blood Urine Nitrite Urine Bilirubin Urine Urobilinogen Ur Leukocyte Esterase Urine WBC (Auto) Urine RBC (Auto) U Hyaline Cast (Auto) Urine Bacteria (Auto) Squamous Epi Cells Auto Urine Mucus (Auto) Urine Ascorbic Acid 09/24/18 14:05 WBC RBC Hgb Hct MCV MCH MCHC RDW Plt Count Seg Neutrophils % Lymphocytes % Monocytes % Eosinophils % Basophils % Absolute Neutrophils Absolute Lymphocytes Absolute Monocytes Absolute Eosinophils Absolute Basophils Sodium Potassium Chloride Carbon Dioxide Anion Gap BUN Creatinine Est GFR ( Amer) Est GFR (Non-Af Amer) Glucose Calcium Total Bilirubin Direct Bilirubin Neonat Total Bilirubin Neonat Direct Bilirubin Neonat Indirect Bili AST ALT Alkaline Phosphatase Troponin I Total Protein Albumin Urine Color DIEGO Urine Appearance CLOUDY Urine pH 5.0 Ur Specific [place] 1.019 Urine Protein 100 H Urine Glucose (UA) NEGATIVE Urine Ketones NEGATIVE Urine Blood LARGE H Urine Nitrite NEGATIVE Urine Bilirubin NEGATIVE Urine Urobilinogen NEGATIVE Ur Leukocyte Esterase MODERATE H Urine WBC (Auto) 30 Urine RBC (Auto) 13 U Hyaline Cast (Auto) 13 Urine Bacteria (Auto) TRACE Squamous Epi Cells Auto 14 Urine Mucus (Auto) RARE Urine Ascorbic Acid NEGATIVE - Vital Signs Vital signs: Temp Pulse Resp BP Pulse Ox 14 114/62 99 09/24/18 15:31 09/24/18 15:31 09/24/18 15:31 - Laboratory Result Diagrams: 09/24/18 13:13 09/24/18 13:13 Laboratory results interpreted by me: 09/24/18 09/24/18 09/24/18 13:13 13:13 14:05 RBC 3.54 L Hgb 11.9 L Hct 35.8 L MCV 101 H MCH 33.6 H RDW 16.3 H Basophils % 2.1 H Sodium 135.2 L Chloride 95 L BUN 32 H Creatinine 4.30 H Est GFR ( Amer) 12 L Est GFR (Non-Af Amer) 10 L Glucose 160 H Urine Protein 100 H Urine Blood LARGE H Ur Leukocyte Esterase MODERATE H Discharge - Discharge Clinical Impression: Symptomatic sinus bradycardia Condition: Good Disposition: ADMITTED INPATIENT Admitting Provider: Gifty (Hospitalist) Unit Admitted: Telemetry Referrals: ELVIS GUEVARA PA-C [ALLIED HEALTH PROFESSIONAL] - Follow up as needed
[2018-09-24 13:28] LABS: ABSOLUTE BASOPHILS # (AUTO) 0.1 10^3/uL (0.0-0.2); ABSOLUTE EOSINOPHILS # (AUTO) 0.2 10^3/uL (0.0-0.6); ABSOLUTE MONOCYTES (AUTO) 0.3 10^3/uL (0.1-1.4); BASOPHILS % (AUTO) 2.1 % (0-2); EOSINOPHILS % (AUTO) 3.7 % (0-6); HEMATOCRIT 35.8 % (36.0-47.0); HEMOGLOBIN 11.9 g/dL (12.0-15.5); LYMPHOCYTES % (AUTO) 21.6 % (13-45); MEAN CORPUSCULAR HEMOGLOBIN 33.6 pg (27.0-33.4); MEAN CORPUSCULAR HGB CONC 33.1 g/dL (32.0-36.0); MEAN CORPUSCULAR VOLUME 101 fl (80-97); MONOCYTES % (AUTO) 6.9 % (3-13); PLATELET COUNT 165 10^3/uL (150-450); RED BLOOD COUNT 3.54 10^6/uL (3.72-5.28); RED CELL DISTRIBUTION WIDTH 16.3 % (11.5-14.0); SEGMENTED NEUTROPHILS % (AUTO) 65.7 % (42-78); TOTAL CELLS COUNTED % (AUTO) 100 %; WHITE BLOOD COUNT 4.5 10^3/uL (4.0-10.5)
--- NOTE | 2018-09-24 13:38 | EKG REPORT ---
SEVERITY:- ABNORMAL ECG - SINUS BRADYCARDIA 47 AND IDIOVENTRICULAR RHYTHM 47/MIN RBBB AND LPFB : Confirmed by: Ki Devries MD 24-Sep-2018 13:38:12
[2018-09-24 13:47] LABS: ALANINE AMINOTRANSFERASE 26 U/L (9-52); ALBUMIN 3.7 g/dL (3.5-5.0); ALKALINE PHOSPHATASE 104 U/L (38-126); ANION GAP 10 (5-19); ASPARTATE AMINO TRANSFERASE 29 U/L (14-36); BILIRUBIN,DIRECT 0.4 mg/dL (0.0-0.4); BILIRUBIN,TOTAL 0.4 mg/dL (0.2-1.3); BLOOD UREA NITROGEN 32 mg/dL (7-20); CALCIUM 8.7 mg/dL (8.4-10.2); CARBON DIOXIDE 30 mmol/L (22-30); CHLORIDE 95 mmol/L (98-107); GLUCOSE 160 mg/dL (75-110); POTASSIUM 4.5 mmol/L (3.6-5.0); TOTAL PROTEIN 6.5 g/dL (6.3-8.2)
[2018-09-24 14:56] LABS: APPEARANCE,URINE CLOUDY; BILIRUBIN,URINE NEGATIVE (NEGATIVE); COLOR,URINE AMBER; GLUCOSE, URINE NEGATIVE (NEGATIVE); KETONES,URINE NEGATIVE (NEGATIVE); LEUKOCYTE ESTERASE,URINE MODERATE (NEGATIVE); NITRITE,URINE NEGATIVE (NEGATIVE); PROTEIN,URINE 100 mg/dL (NEGATIVE); URINE SPECIFIC GRAVITY 1.019; UROBILINOGEN,URINE NEGATIVE mg/dL (<2.0)
--- NOTE | 2018-09-24 16:11 | RADIOLOGY REPORT (SQ) ---
EXAM DESCRIPTION: CHEST SINGLE VIEW COMPLETED DATE/TIME: 09/24/2018 3:56 pm REASON FOR STUDY: sob COMPARISON: None. EXAM PARAMETERS: NUMBER OF VIEWS: One view. TECHNIQUE: Single frontal radiographic view of the chest acquired. RADIATION DOSE: NA LIMITATIONS: None. FINDINGS: LUNGS AND PLEURA: No opacities, masses or pneumothorax. No pleural effusion. MEDIASTINUM AND HILAR STRUCTURES: No masses. Contour normal. HEART AND VASCULAR STRUCTURES: Heart normal in size. Normal vasculature. BONES: Moderate degenerative change both shoulders HARDWARE: None in the chest. OTHER: No other significant finding. IMPRESSION: NO ACUTE RADIOGRAPHIC FINDING IN THE CHEST. TECHNICAL DOCUMENTATION: JOB ID: [id number] [employer]- All Rights Reserved Reading location - IP/workstation name: [email or web address]
[2018-09-24] MEDS ORDERED: DEXTROSE 50%-WATER 25 GM/50 ML DISP.SYRIN IV PRN ×2 (17:07)
[2018-09-24] MEDS ORDERED: GLUCAGON,HUMAN RECOMB 1 MG INJ IM PRN (17:07)
[2018-09-24] MEDS ORDERED: DEXTROSE 40% GEL 15 GM TUBE PO PRN ×2 (17:07)
--- NOTE | 2018-09-24 17:47 | PDOC H&P ---
History of Present Illness Admission Date/PCP: 09/24/18 16:13 JESSICA MANZANARES MD Patient complains of: weakness History of Present Illness: STEVE HERNANDEZ is a 82 year old female with a past medical history of chronic diastolic heart failure, ESRD on dialysis, insulin-dependent diabetes mellitus type 2, rheumatoid arthritis, hypertension and mild dementia who was sent from the dialysis clinic to to weakness and bradycardia. Family on bedside. Daughter says that patient has been complaining of generalized weakness and fatigue since Saturday. She went for dialysis earlier today and complained of worsening generalized weakness and shortness of breath. Her heart rate was noted to be low in the high 30s during dialysis. Blood pressure during that time was reported to be at 110/45. She was sent to the ER where she was noted to have a heart rate in the high 40s. Blood pressure in the 130/45. Patient is on Coreg at home. ER provider has discussed with patient's furniture stainer at [facility], Dr. Zhang who has recommended observing her overnight and recommended beta-karli washout. Upon encounter, patient appears comfortable. She does say she has some mild chest discomfort. Heart rate is currently at 47. Repeat blood pressure is 145/47. Past Medical History Cardiac Medical History: Reports: Congestive Heart Failure, Coronary Artery Disease - murmur, Hyperlipidema, Hypertension - on meds Denies: Myocardial Infarction Pulmonary Medical History: Denies: Asthma, Bronchitis, Chronic Obstructive Pulmonary Disease (COPD), Pneumonia, Tuberculosis Neurological Medical History: Denies: Seizures Endocrine Medical History: Reports: Diabetes Mellitus Type 1, Diabetes Mellitus Type 2 Renal/ Medical History: Reports: End Stage Renal Disease GI Medical History: Reports: Gastroesophageal Reflux Disease Denies: Cirrhosis Musculoskeltal Medical History: Reports: Arthritis - RA Psychiatric Medical History: Reports: Depression - anxiety Denies: Bipolar Disorder Hematology: Reports: Anemia - hx of Denies: Bleeding Tendencies Past Surgical History Past Surgical History: Reports: Appendectomy, Other - Breast lumpectomy Social History Lives with: Alone Smoking Status: Never Smoker Frequency of Alcohol Use: None Hx Recreational Drug Use: No Hx Prescription Drug Abuse: No Family History Family History: Reviewed & Not Pertinent Parental Family History Reviewed: Yes - No premature CAD Children Family History Reviewed: No Sibling(s) Family History Reviewed.: No Medication/Allergy Home Medications: Allopurinol 100 mg PO DAILY 01/02/16 Aspirin [Ecotrin 81 mg EC Tablet] 81 mg PO DAILY 03/12/15 Atorvastatin Calcium 40 mg PO QHS 03/12/15 Folic Acid 1 mg PO QAM 03/12/15 Hydroxychloroquine Sulfate [Plaquenil 200 mg Tablet] 200 mg PO BIDBS 03/12/15 Insulin Glargine,Hum.rec.anlog [Lantus Insulin 100 Unit/mL Insulin Pen] 12 units SQ QAM 03/12/15 Sertraline HCl 200 mg PO QAM 03/12/15 Cyanocobalamin/FA/Pyridoxine [Folbee Tablet] 1 tab PO DAILY 06/24/17 Donepezil HCl [Aricept 5 mg Tablet] 10 mg PO DAILY 06/24/17 Insulin Aspart [Novolog Flexpen] 3 unit SQ AC MDD 20 UNITS 06/24/17 Calcium Acetate [Phoslo 667 mg Capsule] 2,001 mg PO MEALS 09/24/18 Calcium Acetate [Phoslo 667 mg Capsule] 667 mg PO .SNACKS 09/24/18 Carvedilol [Coreg 6.25 mg Tablet] 6.25 mg PO Q12 09/24/18 Gabapentin [Neurontin 100 mg Capsule] 100 mg PO Q8 09/24/18 Insulin Aspart [Novolog Flexpen] 0 units SQ .SLIDING SCALE MDD 20 UNITS 09/24/18 Mirtazapine [Remeron 15 mg Tablet] 15 mg PO QHS 09/24/18 Omeprazole 40 mg PO Q6AM 09/24/18 Allergies/Adverse Reactions: Penicillins Allergy (Severe, Verified 06/24/17 09:42) dizzy Review of Systems All systems: reviewed and no additional remarkable complaints except as stated - As mentioned in HPI Physical Exam Vital Signs: Temp Pulse Resp BP Pulse Ox 14 114/62 99 09/24/18 15:31 09/24/18 15:31 09/24/18 15:31 Intake & Output 09/23/18 09/24/18 09/25/18 06:59 06:59 06:59 Weight 156 lb 4.924 oz General appearance: PRESENT: no acute distress, well-developed, well-nourished Head exam: PRESENT: atraumatic, normocephalic Eye exam: PRESENT: conjunctiva pink, EOMI, PERRLA. ABSENT: scleral icterus Ear exam: PRESENT: normal external ear exam Mouth exam: PRESENT: moist, tongue midline Neck exam: ABSENT: carotid bruit, JVD, lymphadenopathy, thyromegaly Respiratory exam: PRESENT: clear to auscultation kylee. ABSENT: rales, rhonchi, wheezes Cardiovascular exam: PRESENT: bradycardia, RRR. ABSENT: diastolic murmur, rubs, systolic murmur Pulses: PRESENT: normal dorsalis pedis pul GI/Abdominal exam: PRESENT: normal bowel sounds, soft. ABSENT: distended, guarding, mass, organolmegaly, rebound, tenderness Rectal exam: PRESENT: deferred Neurological exam: PRESENT: alert, awake, oriented to person, CN II-XII grossly intact. ABSENT: motor sensory deficit Results Laboratory Results: 09/24/18 13:13 09/24/18 13:13 09/24/18 09/24/18 09/24/18 13:13 13:13 14:05 WBC 4.5 RBC 3.54 L Hgb 11.9 L Hct 35.8 L MCV 101 H MCH 33.6 H MCHC 33.1 RDW 16.3 H Plt Count 165 Seg Neutrophils % 65.7 Lymphocytes % 21.6 Monocytes % 6.9 Eosinophils % 3.7 Basophils % 2.1 H Absolute Neutrophils 3.0 Absolute Lymphocytes 1.0 Absolute Monocytes 0.3 Absolute Eosinophils 0.2 Absolute Basophils 0.1 Sodium 135.2 L Potassium 4.5 Chloride 95 L Carbon Dioxide 30 Anion Gap 10 BUN 32 H Creatinine 4.30 H Est GFR ( Amer) 12 L Est GFR (Non-Af Amer) 10 L Glucose 160 H Calcium 8.7 Total Bilirubin 0.4 AST 29 ALT 26 Alkaline Phosphatase 104 Total Protein 6.5 Albumin 3.7 Urine Color DIEGO Urine Appearance CLOUDY Urine pH 5.0 Ur Specific [place] 1.019 Urine Protein 100 H Urine Glucose (UA) NEGATIVE Urine Ketones NEGATIVE Urine Blood LARGE H Urine Nitrite NEGATIVE Ur Leukocyte Esterase MODERATE H Urine WBC (Auto) 30 Urine RBC (Auto) 13 09/24/18 13:13 Troponin I 0.014 Impressions: Chest X-Ray 09/24/18 15:41 IMPRESSION: NO ACUTE RADIOGRAPHIC FINDING IN THE CHEST. Assessment and Plan - Diagnosis (1) Bradycardia Is this a current diagnosis for this admission?: Yes Plan: EKG shows sinus bradycardia. Patient is on Coreg at home. ER provider has discussed with patient's furniture stainer at [facility], Dr. Zhang who has recommended observing her overnight and recommended beta-karli washout. Upon encounter, patient appears comfortable. She does say she has some mild chest discomfort. Heart rate is currently at 47. Repeat blood pressure is 145/47. Hold off on Coreg for now. Will check a TSH. (2) Diabetes mellitus type 2 in nonobese Is this a current diagnosis for this admission?: Yes Plan: Accu-Cheks. Sliding scale for now. (3) ESRD (end stage renal disease) on dialysis Is this a current diagnosis for this admission?: Yes Plan: Patient on MWF dialysis. Will consult nephrology. (4) HTN (hypertension) Qualifiers: Hypertension type: essential hypertension Qualified Code(s): I10 - Essential (primary) hypertension Is this a current diagnosis for this admission?: Yes Plan: Hold Coreg for now. (5) Early dementia Is this a current diagnosis for this admission?: Yes (6) Asymptomatic bacteriuria Is this a current diagnosis for this admission?: Yes Plan: She denies any LUTS. - Time Time Spent with patient: 25-34 minutes
--- NOTE | 2018-09-24 17:53 | ADVANCED CARE ---
- Diagnosis (1) Bradycardia Diagnosis Current: Yes (2) ESRD (end stage renal disease) on dialysis Diagnosis Current: Yes (3) Diabetes mellitus type 2 in nonobese Diagnosis Current: Yes (4) HTN (hypertension) Diagnosis Current: Yes Resuscitation Status: Full Code Discussion: Discussed with patient and family at bedside. Patient does express that she pre fers chest compressions, defibrillation or mechanical ventilation if the need arises. Family on bedside concurs. HER 2 daughters, Genevieve and Mellisa are her surrogate medical decision makers.
[2018-09-24] MEDS: INSULIN LISPRO 100 UNIT/ML 3 ML VIAL SUBCUT SCH (22:08)
[2018-09-24] MEDS ORDERED: LOPERAMIDE HCL 2 MG CAPSULE PO ONE (22:41)
[2018-09-24] MEDS: HEPARIN SOD (PORCINE) 5,000 UNIT/ML 1 ML VIAL SUBCUT SCH (22:51)
[2018-09-25] MEDS: INSULIN LISPRO 100 UNIT/ML 3 ML VIAL SUBCUT SCH (08:51)
[2018-09-25] MEDS ORDERED: LOPERAMIDE HCL 2 MG CAPSULE PO PRN (09:41)
[2018-09-25 10:17] LABS: ANION GAP 9 (5-19); BLOOD UREA NITROGEN 45 mg/dL (7-20); CALCIUM 8.5 mg/dL (8.4-10.2); CARBON DIOXIDE 30 mmol/L (22-30); CHLORIDE 95 mmol/L (98-107); GLUCOSE 92 mg/dL (75-110); POTASSIUM 4.9 mmol/L (3.6-5.0)
[2018-09-25] MEDS: HEPARIN SOD (PORCINE) 5,000 UNIT/ML 1 ML VIAL SUBCUT SCH (11:30)
[2018-09-25 13:55] VITALS: BP 142/52
--- NOTE | 2018-09-25 18:51 | PDOC DISCHARGE SUMMARY ---
General - Admit/Disc Date/PCP Admission Date/Primary Care Provider: 09/24/18 16:13 JESSICA MANZANARES MD Discharge Date: 09/25/18 - Discharge Diagnosis (1) Bradycardia Is this a current diagnosis for this admission?: Yes (2) Diabetes mellitus type 2 in nonobese Is this a current diagnosis for this admission?: Yes (3) ESRD (end stage renal disease) on dialysis Is this a current diagnosis for this admission?: Yes (4) HTN (hypertension) Is this a current diagnosis for this admission?: Yes (5) Early dementia Is this a current diagnosis for this admission?: Yes (6) Asymptomatic bacteriuria Is this a current diagnosis for this admission?: Yes - Additional Information Resuscitation Status: Full Code Home Medications: Allopurinol 100 mg PO DAILY 03/12/15 Aspirin [Ecotrin 81 mg EC Tablet] 81 mg PO DAILY 03/12/15 Atorvastatin Calcium 40 mg PO QHS 03/12/15 Folic Acid 1 mg PO QAM 03/12/15 Hydroxychloroquine Sulfate [Plaquenil 200 mg Tablet] 200 mg PO BIDBS 03/12/15 Insulin Glargine,Hum.rec.anlog [Lantus Insulin 100 Unit/mL Insulin Pen] 12 units SQ QAM 03/12/15 Sertraline HCl 200 mg PO QAM 03/12/15 Cyanocobalamin/FA/Pyridoxine [Folbee Tablet] 1 tab PO DAILY 06/24/17 Donepezil HCl [Aricept 5 mg Tablet] 10 mg PO DAILY 06/24/17 Insulin Aspart [Novolog Flexpen] 3 unit SQ AC MDD 20 UNITS 06/24/17 Calcium Acetate [Phoslo 667 mg Capsule] 2,001 mg PO MEALS 09/24/18 Calcium Acetate [Phoslo 667 mg Capsule] 667 mg PO .SNACKS 09/24/18 Gabapentin [Neurontin 100 mg Capsule] 100 mg PO Q8 09/24/18 Insulin Aspart [Novolog Flexpen] 0 units SQ .SLIDING SCALE MDD 20 UNITS 09/24/18 Mirtazapine [Remeron 15 mg Tablet] 15 mg PO QHS 09/24/18 Omeprazole 40 mg PO Q6AM 09/24/18 History of Present Illness History of Present Illness: STEVE HERNANDEZ is a 82 year old female with a past medical history of chronic diastolic heart failure, ESRD on dialysis, insulin-dependent diabetes mellitus type 2, rheumatoid arthritis, hypertension and mild dementia who was sent from the dialysis clinic to to weakness and bradycardia. Family on bedside. Daughter says that patient has been complaining of generalized weakness and fatigue since Saturday. She went for dialysis earlier today and complained of worsening generalized weakness and shortness of breath. Her heart rate was noted to be low in the high 30s during dialysis. Blood pressure during that time was reported to be at 110/45. She was sent to the ER where she was noted to have a heart rate in the high 40s. Blood pressure in the 130/45. Patient is on Coreg at home. ER provider has discussed with patient's watch dial maker at [facility], Dr. Zhang who has recommended observing her overnight and recommended beta-karli washout. Upon encounter, patient appears comfortable. She does say she has some mild chest discomfort. Heart rate is currently at 47. Repeat blood pressure is 145/47. Hospital Course Hospital Course: Patient was observed overnight while her Coreg was held on admission. Her heart rate recovered to the 60s-70s. Her blood pressures remained stable. She had initial mild chest pain on admission but this was very transient and she has been chest pain-free since last night. Patient was ambulated prior to discharge in the hallways and she appeared to be at her baseline is able to ambulate with her walker with no desaturation or acute issues. I discussed her case again with her watch dial maker, Dr. Ohara who had the same recommendation of holding off on her Coreg and who will be seeing her tomorrow morning at 8 AM in his office. Physical Exam Vital Signs: Temp Pulse Resp BP Pulse Ox 15 142/52 H 100 09/25/18 13:02 09/25/18 13:49 09/25/18 13:48 Intake & Output 09/24/18 09/25/18 09/26/18 06:59 06:59 06:59 Weight 156 lb 4.924 oz General appearance: PRESENT: no acute distress, well-developed, well-nourished Head exam: PRESENT: atraumatic, normocephalic Eye exam: PRESENT: conjunctiva pink, EOMI, PERRLA. ABSENT: scleral icterus Ear exam: PRESENT: normal external ear exam Mouth exam: PRESENT: moist, tongue midline Neck exam: ABSENT: carotid bruit, JVD, lymphadenopathy, thyromegaly Respiratory exam: PRESENT: clear to auscultation kylee. ABSENT: rales, rhonchi, wheezes Cardiovascular exam: PRESENT: RRR. ABSENT: diastolic murmur, rubs, systolic murmur Pulses: PRESENT: normal dorsalis pedis pul GI/Abdominal exam: PRESENT: normal bowel sounds, soft. ABSENT: distended, guarding, mass, organolmegaly, rebound, tenderness Rectal exam: PRESENT: deferred Neurological exam: PRESENT: alert, awake, oriented to person, oriented to place, oriented to time, oriented to situation, CN II-XII grossly intact. ABSENT: motor sensory deficit Results Laboratory Results: 09/24/18 13:13 09/25/18 08:25 09/25/18 08:25 Sodium 133.5 L Potassium 4.9 Chloride 95 L Carbon Dioxide 30 Anion Gap 9 BUN 45 H Creatinine 5.52 H Est GFR ( Amer) 9 L Est GFR (Non-Af Amer) 7 L Glucose 92 Calcium 8.5 09/24/18 09/24/18 13:13 20:14 Troponin I 0.014 0.018 Impressions: Chest X-Ray 09/24/18 15:41 IMPRESSION: NO ACUTE RADIOGRAPHIC FINDING IN THE CHEST. Qualifiers - * PATIENT BEING DISCHARGED WITH ANY OF THE FOLLOWING DIAGNOSIS: No Acute Heart Failure - Is this a Heart Failure Patient?: No LVEF < 40%?: No- if no continue to question #3 3. Anticoagulant therapy for permanect/persistent/paraoxysmal Afib or Aflutter: N/A
== END 2018-09-25 13:55 | disposition home or self-care (01) ==
LOC: ER 12:12 → INTOOBSV 16:13 → EH 16:13
PROVIDERS: ADMIT Internal Medicine; ATTEND Internal Medicine
DX: R00.1 Bradycardia, unspecified (principal); E11.22 Type 2 diabetes mellitus with diabetic chronic kidney disease; I13.2 Hypertensive heart and chronic kidney disease with heart failure and with stage 5 chronic kidney disease, or end stage renal disease; I50.32 Chronic diastolic (congestive) heart failure; N18.6 End stage renal disease; R82.71 Bacteriuria; F03.90 Unspecified dementia, unspecified severity, without behavioral disturbance, psychotic disturbance, mood disturbance, and anxiety; M06.9 Rheumatoid arthritis, unspecified; R07.89 Other chest pain; E78.5 Hyperlipidemia, unspecified; K21.9 Gastro-esophageal reflux disease without esophagitis; Z99.2 Dependence on renal dialysis; Z79.4 Long term (current) use of insulin; Z79.82 Long term (current) use of aspirin; Z90.49 Acquired absence of other specified parts of digestive tract
CPT/HCPCS: 93005; 99285; 36415 ×2; 87086; 82962 ×2; 84443; 85025; 87088; 80048; 80053; 81001; 84484; 87186; 71045; 93010; G0378 ×2; J1644; A9270 ×2

== ENCOUNTER 2018-10-27 14:13 | Emergency (ER) | payer MEDICARE ==
--- NOTE | 2018-10-27 16:13 | ER Document Report ---
ED Extremity Problem, Lower <KANNAN JASSO - Last Filed: 10/27/18 23:15> - General TRAVEL OUTSIDE OF THE [place] IN LAST 30 DAYS: No <TG WARREN - Last Filed: 10/28/18 09:32> - General Chief Complaint: Ankle Pain Stated Complaint: FALL/LEFT SIDE HIP AND LEG PAIN Time Seen by Provider: 10/27/18 15:47 Primary Care Provider: JESSICA MANZANARES MD [Primary Care Provider] - Follow up as needed Notes: Patient is a 83-year-old female with a history of hypertension, dementia, type 2 diabetes, hemodialysis who presents to the emergency department with multiple complaints. Patient states that she was sent over here by dialysis for concern of swelling to the left lower extremity. The family member at the bedside states that a few days ago they did notice swelling to the left ankle that has significantly gotten worse and now has spread up the left leg. They also report that around 1 AM this morning the life alert was activated and they were called due to a fall. A message did not get the patient off of the floor and place her into the bed. Patient states that she was walking to the bed with her walker when she lost her footing and fell backwards. Patient states she did not lose consciousness. Patient and family deny use of blood thinners. Patient denies loss of bowel or bladder. Patient complains of low back pain, right hip pain and neck pain. Patient states she has not vomited since the incident. Patient reports chills. The daughter states that dialysis called her and was concerned that the patient was acting disoriented and more lethargic than normal. Family and patient deny fever. Patient denies chest pain or shortness of breath. Family states that the patient has been ambulating without difficulty with her walker since the fall. (BRIANA,TG) - Related Data Allergies/Adverse Reactions: Penicillins Allergy (Severe, Verified 06/24/17 09:42) dizzy Past Medical History - General Information source: Patient, Relative Cannot obtain history due to: Dementia - Social History Smoking Status: Unknown if Ever Smoked Frequency of alcohol use: None Drug Abuse: None Lives with: Alone Family History: Reviewed & Not Pertinent - Past Medical History Cardiac Medical History: Reports: Hx Congestive Heart Failure, Hx Coronary Artery Disease - murmur, Hx Hypercholesterolemia, Hx Hypertension - on meds Denies: Hx Heart Attack Pulmonary Medical History: Reports: None Denies: Hx Asthma, Hx Bronchitis, Hx COPD, Hx Pneumonia, Hx Tuberculosis EENT Medical History: Reports: None Neurological Medical History: Reports: None. Denies: Hx Cerebrovascular Accident, Hx Seizures Endocrine Medical History: Reports: Hx Diabetes Mellitus Type 1, Hx Diabetes Mellitus Type 2 Renal/ Medical History: Reports: Hx End Stage Renal Disease. Denies: Hx Kidne y Stones, Hx Peritoneal Dialysis Malignancy Medical History: Reports: None GI Medical History: Reports: Hx Gastroesophageal Reflux Disease. Denies: Hx Cirrhosis, Hx Ulcer Musculoskeletal Medical History: Reports Hx Arthritis - RA, Denies Hx Multiple Sclerosis Skin Medical History: Reports None Psychiatric Medical History: Reports: Hx Depression - anxiety Denies: Hx Bipolar Disorder, Hx Schizophrenia Traumatic Medical History: Reports: None Infectious Medical History: Reports: None Past Surgical History: Reports: Hx Appendectomy, Hx Gynecologic Surgery, Other - Breast lumpectomy - Immunizations Hx Diphtheria, Pertussis, Tetanus Vaccination: Yes Hx Pneumococcal Vaccination: 01/25/16 <TG WARREN - Last Filed: 10/28/18 09:32> Review of Systems - Review of Systems Constitutional: See HPI EENT: No symptoms reported Cardiovascular: No symptoms reported Respiratory: No symptoms reported Gastrointestinal: No symptoms reported Genitourinary: No symptoms reported Female Genitourinary: No symptoms reported Musculoskeletal: See HPI Skin: No symptoms reported Hematologic/Lymphatic: No symptoms reported Neurological/Psychological: No symptoms reported <TG WARREN - Last Filed: 10/28/18 09:32> Physical Exam <TG WARREN - Last Filed: 10/28/18 09:32> - Vital signs Vitals: Temp Pulse Resp BP Pulse Ox 100.4 F 86 18 127/44 H 94 10/27/18 14:26 10/27/18 14:26 10/27/18 14:26 10/27/18 14:26 10/27/18 14:26 - Notes Notes: GENERAL: Well-appearing, well-nourished and in no acute distress. Pt. is a poor historian. HEAD: Atraumatic, normocephalic. Negative mayorga's sign. EYES: Pupils equal round and reactive to light, extraocular movements intact, sclera anicteric, conjunctiva are normal. ENT: Nares patent, oropharynx clear without exudates. Moist mucous membranes. NECK: Normal range of motion, supple without lymphadenopathy or JVD. LUNGS: Breath sounds clear to auscultation bilaterally and equal. No wheezes rales or rhonchi. HEART: Regular rate and rhythm without murmurs, rubs or gallops. ABDOMEN: Soft, nontender, hyperactive bowel sounds. No guarding, no rebound. No masses appreciated. BACK: No thoracic midline tenderness. + lumbar and cervical midline tenderness. No saddle anesthesia, normal distal neurovascular exam. GENITOURINARY: Deferred. EXTREMITIES: Normal range of motion, + 3 pitting edema to left lower extremity, +1/2 pitting edema to right lower extremity. NEUROLOGICAL: Cranial nerves II through XII grossly intact. Normal speech, slow gait with walker. PSYCH: Normal mood, normal affect. SKIN: Warm, Dry, normal turgor, no rashes or lesions noted. (TG WARREN) Course - Laboratory Result Diagrams: 10/27/18 17:26 10/27/18 17:26 <KANNAN JASSO - Last Filed: 10/27/18 23:15> - Laboratory Result Diagrams: 10/27/18 17:26 10/27/18 17:26 - Diagnostic Test Radiology reviewed: Reports reviewed <TG WARREN - Last Filed: 10/28/18 09:32> - Re-evaluation Re-evalutation: 10/27/18 23:15 The patient has been up for discharge and the family approach the nursing staff in concerned that the patient might not do well when she goes home. I explained to the family that Tg had spoke with Dr. Hayes and the plan is to have the patient follow-up with Dr. Hayes outpatient. Family states that the patient lives by herself. I offered to put in a case management referral in order to have home health evaluate the patient. (KANNAN JASSO) 10/27/18 16:14 Patient was brought to pod 5 to be evaluated in her wheelchair. After further discussion with the family I did have great the patient to level 3 acuity due to complaint, low-grade fever, reporting that the patient is more lethargic and not acting herself, and multiple comorbidities. 10/27/18 19:42 Upon reevaluation patient is up on the bedside commode having a bowel movement. Patient states that over the past few weeks right before she has a bowel movement she has abdominal cramping. Patient states she is not constipated as she has had multiple bowel movements without diarrhea. Patient states she does not have abdominal pain unless she is about to have a bowel movement. Family reports that the patient is currently being worked up with FOREST MANAGER who she saw last week for vaginal bleeding. Patient does have a urinary tract infection which while I will treat appropriately. Waiting on chest x-ray results. Patient does have bilateral pitting edema worse on the left versus the right. Patient has +3 pitting edema to the left lower extremity and +1/2 to the right lower extremity. 10/27/18 20:45 I did discuss the patient's case with Dr. Joyce HERNANDES, specifically the leukocytosis, urinary tract infection and the results from the radiology studies. Patient was noted to have a transverse fracture in the lumbar spine. At this time no intervention is required. Patient's hip, neck, head and ankle studies were unremarkable for any acute emergent issue. I did explain the findings to the patient and the family. The patient states she has fallen multiple times over the past month. Patient states she does use a walker. I did discuss with the 2 family members at the bedside that she does need someone to stay with her over the next few nights and to possibly find someone she can stay with for safety concerns. Patient states that she mostly falls when trying to get into her bed as it is tall. I did inform the patient to sleep on her couch until they find alternate sleeping arrangements. I did inform the patient to keep her legs elevated as it does seem like this helped with the swelling to her lower extremities while in the emergency department. The left lower leg swelling has significantly improved during her emergency department stay. Vital signs are unremarkable at this time. I did discuss strict return precautions with the patient and family members. I did inform them to return for loss of bowel or bladder, numbness or tingling to the lower extremities, uncontrollable lower back pain, another fall that causes worsening of her pain or a new injury. The family member at the bedside states that she has been losing her bowels. Upon further questioning this is been ongoing for a few weeks and this is not an accurate description of loss of bowel. Patient was able to control her bowels while in the emergency department as she got up to the bedside commode with assistance, had a bowel movement that was controlled. She did have a formed stool here as reported by the RN. I did inform the family to seek medical attention if she were to develop uncontrollable diarrhea. We will treat the patient for a urinary tract infection but she does need close follow-up with Dr. Hayes and her primary care physician. 10/27/18 21:[address] speak with Dr. Hayes the patient's cash management coordinator. She recommends placing the patient on ciprofloxacin 250 mg by mouth daily for 1 week. 10/27/18 22:01 Chest x-ray showed mild cardiomegaly and chronic degenerative changes in the shoulders. Negative for pneumonia. I did discuss results with the patient as well as receiving a dose of ciprofloxacin prior to discharge. Patient is nontoxic-appearing is answer questions appropriately at this time. Patient is a poor historian but is mentating appropriately at this time. Will obtain blood cultures. Patient aware she needs to follow-up in the next few days to have repeat blood work with her primary care physician or Dr. Hayes. 10/28/18 09:29 Case management consult was placed for possible OT, PT, home health assistance and even assisted living. (TG WARREN) - Vital Signs Vital signs: Temp Pulse Resp BP Pulse Ox 100.0 F 83 16 105/65 97 10/27/18 23:16 10/27/18 23:16 10/27/18 23:16 10/27/18 23:16 10/27/18 23:16 - Laboratory Laboratory results interpreted by me: 10/27/18 10/27/18 10/27/18 17:26 17:26 19:09 WBC 17.4 H RBC 3.36 L Hgb 10.9 L Hct 32.9 L MCV 98 H RDW 15.6 H Seg Neuts % (Manual) 92 H Lymphocytes % (Manual) 4 L Abs Neuts (Manual) 16.0 H Sodium 134.5 L Chloride 94 L BUN 23 H Creatinine 3.93 H Est GFR ( Amer) 13 L Est GFR (Non-Af Amer) 11 L Glucose 198 H Direct Bilirubin 0.5 H AST 67 H Urine Protein 30 H Urine Blood SMALL H Urine Bilirubin SMALL H Ur Leukocyte Esterase LARGE H Patient has a leukocytosis of 17.4. Patient does have an elevated BUN and creatinine which is consistent with her kidney failure as she is on hemodialysis. Patient did have a large amount of leukocytes in her urine and a small amount of epithelial cells. Will treat for urinary tract infection. Laboratory 10/27/18 10/27/18 10/27/18 17:26 17:26 19:09 WBC 17.4 H RBC 3.36 L Hgb 10.9 L Hct 32.9 L MCV 98 H MCH 32.4 MCHC 33.1 RDW 15.6 H Plt Count 195 Total Counted 100 Seg Neutrophils % Not Reportable Seg Neuts % (Manual) 92 H Lymphocytes % Not Reportable Lymphocytes % (Manual) 4 L Monocytes % Not Reportable Monocytes % (Manual) 4 Eosinophils % Not Reportable Eosinophils % (Manual) 0 Basophils % Not Reportable Basophils % (Manual) 0 Absolute Neutrophils Not Reportable Abs Neuts (Manual) 16.0 H Absolute Lymphocytes Not Reportable Abs Lymphs (Manual) 0.7 Absolute Monocytes Not Reportable Abs Monocytes (Manual) 0.7 Absolute Eosinophils Not Reportable Absolute Eos (Manual) 0.0 Absolute Basophils Not Reportable Abs Basophils (Manual) 0.0 Toxic Granulation 1+ Toxic Vacuolation PRESENT Platelet Comment ADEQUATE Poikilocytosis SLIGHT Anisocytosis SLIGHT Target Cells SLIGHT Tear Drop Cells SLIGHT Ovalocytes SLIGHT Sodium 134.5 L Potassium 4.5 Chloride 94 L Carbon Dioxide 26 Anion Gap 15 BUN 23 H Creatinine 3.93 H Est GFR ( Amer) 13 L Est GFR (Non-Af Amer) 11 L Glucose 198 H Calcium 8.7 Total Bilirubin 0.5 Direct Bilirubin 0.5 H Neonat Total Bilirubin Not Reportable Neonat Direct Bilirubin Not Reportable Neonat Indirect Bili Not Reportable AST 67 H ALT 21 Alkaline Phosphatase 120 Total Protein 6.7 Albumin 3.8 Urine Color DIEGO Urine Appearance CLOUDY Urine pH 5.0 Ur Specific [place] 1.020 Urine Protein 30 H Urine Glucose (UA) NEGATIVE Urine Ketones NEGATIVE Urine Blood SMALL H Urine Nitrite NEGATIVE Urine Bilirubin SMALL H Urine Urobilinogen NEGATIVE Ur Leukocyte Esterase LARGE H Urine WBC (Auto) 63 Urine RBC (Auto) 7 U Hyaline Cast (Auto) 37 Urine Bacteria (Auto) 1+ Squamous Epi Cells Auto 20 Amorphous Sediment Auto TRACE Urine Mucus (Auto) RARE Urine Ascorbic Acid NEGATIVE (BRIANA,TG) - Diagnostic Test Radiology results interpreted by me: 10/27/18 17:[address] 10/27/18 16:05 IMPRESSION: Degenerative disc disease, spondylosis, and facet arthropathy. No acute findings. Head CT 10/27/18 16:05 IMPRESSION: MILD CHRONIC MICROVASCULAR ISCHEMIA. NO ACUTE IMAGING FINDINGS IN THE BRAIN. EVIDENCE OF ACUTE STROKE: NO. Hip X-Ray 10/27/18 16:05 IMPRESSION: Normal hips. Lower lumbar degenerative changes. Lumbar Spine CT 10/27/18 16:05 IMPRESSION: Large Schmorl's node at L2. Degenerative disc disease and spondylosis and facet arthropathy. Likely subacute fractures of the right transverse processes of L2 and L3. Findings as described. Ankle X-Ray 10/27/18 16:07 IMPRESSION: Soft tissue swelling with no fracture. (TG WARREN) Discharge <KANNAN JASSO - Last Filed: 10/27/18 23:15> <TG WARREN - Last Filed: 10/28/18 09:32> - Discharge Clinical Impression: Urinary tract infection Qualifiers: Urinary tract infection type: acute cystitis Hematuria presence: without hematuria Qualified Code(s): N30.00 - Acute cystitis without hematuria Leukocytosis Qualifiers: Leukocytosis type: unspecified Qualified Code(s): D72.829 - Elevated white blo od cell count, unspecified Low back pain Qualifiers: Chronicity: acute Back pain laterality: midline Sciatica presence: without sciatica Qualified Code(s): M54.5 - Low back pain Fracture of transverse process of lumbar vertebra Qualifiers: Encounter type: initial encounter Fracture type: closed Qualified Code(s): S32.009A - Unspecified fracture of unspecified lumbar vertebra, initial encounter for closed fracture Condition: Stable Disposition: HOME, SELF-CARE Instructions: Urinary Tract Infection ([facility]) Additional Instructions: Today you were seen in the emergency department for weakness and left leg swelling. We did perform a thorough work-up which was negative for blood clots, fracture of the hip or fracture of the ankle. It does appear with elevation the swelling to her lower extremities have slightly improved since being in the emergency department. Please continue to elevate your lower extremities and watch for signs and symptoms of infection to include redness, severe swelling, fever. The CT of your lumbar spine did show a transverse process fracture of the L2-L3. This can be what is causing her pain. Typically for this type of discomfort we do recommend physical therapy, please follow-up with your primary care physician to have repeat blood work performed to make sure you are not developing a severe infection. Use Tylenol as needed for pain. Please be careful at home and ambulating with your walker. Wearing nonskid socks. As we have discussed please sleep on the couch as it seems like you fall frequently when trying to get on the bed as it is too high for you. You do have a urinary tract infection which I will place you on ciprofloxacin for 6 days. We will give you a dose in the emergency department Prior to discharge. Please continue to go to hemodialysis and return to the emergency department for continued falls, new injury, worsening pain, fever, dizziness or passing out or any other concerning signs or symptoms. Prescriptions: Ciprofloxacin HCl [Cipro 250 mg Tablet] 1 tab PO DAILY 6 Days #6 tab Referrals: JESSICA MANZANARES MD [Primary Care Provider] - Follow up as needed
--- NOTE | 2018-10-27 17:03 | RADIOLOGY REPORT (SQ) ---
EXAM DESCRIPTION: HIP BILATERAL COMPLETED DATE/TIME: 10/27/2018 4:50 pm REASON FOR STUDY: fall COMPARISON: None. NUMBER OF VIEWS: Two views. TECHNIQUE: AP pelvis and additional frog-leg view of the right and left hip. LIMITATIONS: None. FINDINGS: MINERALIZATION: Normal. PRIMARY HIP: No fracture or dislocation. No worrisome bone lesions. OPPOSITE HIP: No fracture or dislocation. No worrisome bone lesions. PUBIS AND ISCHIUM: No fracture. PELVIS: No fracture. SACRUM: No fracture or dislocation. No worrisome bone lesions. LOWER LUMBAR SPINE: Lower lumbar degenerative disc disease and spondylosis. SOFT TISSUES: No findings. OTHER: No other significant finding. IMPRESSION: Normal hips. Lower lumbar degenerative changes. TECHNICAL DOCUMENTATION: JOB ID: [id number] [employer]- All Rights Reserved Reading location - IP/workstation name: [email or web address]
--- NOTE | 2018-10-27 17:03 | RADIOLOGY REPORT (SQ) ---
EXAM DESCRIPTION: ANKLE LEFT COMPLETE COMPLETED DATE/TIME: 10/27/2018 4:50 pm REASON FOR STUDY: fall, swelling COMPARISON: None. NUMBER OF VIEWS: Three views. TECHNIQUE: AP, lateral, and oblique radiographic images acquired of the left ankle. LIMITATIONS: None. FINDINGS: MINERALIZATION: Normal. BONES: No acute fracture or dislocation. No worrisome bone lesions. JOINTS: No effusions. SOFT TISSUES: Considerable soft tissue swelling. OTHER: No other significant finding. IMPRESSION: Soft tissue swelling with no fracture. TECHNICAL DOCUMENTATION: JOB ID: [id number] [employer]- All Rights Reserved Reading location - IP/workstation name: [email or web address]
--- NOTE | 2018-10-27 17:09 | RADIOLOGY REPORT (SQ) ---
EXAM DESCRIPTION: CT CERVICAL SPINE WITHOUT COMPLETED DATE/TIME: 10/27/2018 4:56 pm REASON FOR STUDY: fall COMPARISON: None. TECHNIQUE: Axial images acquired through the cervical spine without intravenous contrast. Images re viewed with lung, soft tissue and bone windows. Reconstructed coronal and sagittal MPR images review ed. Images stored on PACS. All CT scanners at this facility use dose modulation, iterative reconstruction, and/or weight based d osing when appropriate to reduce radiation dose to as low as reasonably achievable (ALARA). [facility]: Dose Right [facility]: CareDose [facility]: Dose Right [facility]: Teradose 4D [facility]: [employer] RADIATION DOSE: CT Rad equipment meets quality standard of care and radiation dose reduction techniq ues were employed. CTDIvol: 19.7 mGy. DLP: 396 mGy-cm. mGy. LIMITATIONS: None. FINDINGS: ALIGNMENT: Anatomic. MINERALIZATION: Normal. VERTEBRAL BODIES: No fractures or dislocation. DISCS: Discs are narrowed from C3 to the C7. Small marginal osteophytes are present. FACETS, LATERAL MASSES, POSTERIOR ELEMENTS: Mild hypertrophic facet changes seen in the mid to lower cervical spine bilaterally. HARDWARE: None in the spine. VISUALIZED RIBS: No fractures. LUNG APICES AND SOFT TISSUES: No significant or acute findings. OTHER: No other significant finding. IMPRESSION: Degenerative disc disease, spondylosis, and facet arthropathy. No acute findings. TECHNICAL DOCUMENTATION: JOB ID: [id number] Quality ID # [id number]: Final reports with documentation of one or more dose reduction techniques (e.g., Au tomated exposure control, adjustment of the mA and/or kV according to patient size, use of iterative reconstruction technique) 2010 [employer]- All Rights Reserved Reading location - IP/workstation name: [email or web address]
--- NOTE | 2018-10-27 17:19 | RADIOLOGY REPORT (SQ) ---
EXAM DESCRIPTION: CT HEAD WITHOUT COMPLETED DATE/TIME: 10/27/2018 4:56 pm REASON FOR STUDY: fall COMPARISON: 03/12/2015 TECHNIQUE: Axial images acquired through the brain without intravenous contrast. Images reviewed wi th bone, brain and subdural windows. Additional sagittal and coronal reconstructions were generated. Images stored on PACS. All CT scanners at this facility use dose modulation, iterative reconstruction, and/or weight based d osing when appropriate to reduce radiation dose to as low as reasonably achievable (ALARA). [facility]: Dose Right [facility]: CareDose [facility]: Dose Right [facility]: Teradose 4D [facility]: Smart [employer] RADIATION DOSE: CT Rad equipment meets quality standard of care and radiation dose reduction techniq ues were employed. CTDIvol: 48.5 mGy. DLP: 879 mGy-cm. mGy. LIMITATIONS: None. FINDINGS: VENTRICLES: Normal size and contour. CEREBRUM: No masses. No hemorrhage. No midline shift. No evidence for acute infarction. Few scatte red areas of low density in the white matter most likely chronic small vessel ischemic changes. CEREBELLUM: No masses. No hemorrhage. No alteration of density. No evidence for acute infarction. EXTRAAXIAL SPACES: No fluid collections. No masses. ORBITS AND GLOBE: No intra- or extraconal masses. Normal contour of globe without masses. CALVARIUM: No fracture. PARANASAL SINUSES: No fluid or mucosal thickening. SOFT TISSUES: No mass or hematoma. OTHER: No other significant finding. IMPRESSION: MILD CHRONIC MICROVASCULAR ISCHEMIA. NO ACUTE IMAGING FINDINGS IN THE BRAIN. EVIDENCE OF ACUTE STROKE: NO. COMMENT: Quality ID # 436: Final reports with documentation of one or more dose reduction techniques (e.g., Automated exposure control, adjustment of the mA and/or kV according to patient size, use of iterative reconstruction technique) TECHNICAL DOCUMENTATION: JOB ID: [id number] [employer]- All Rights Reserved Reading location - IP/workstation name: [email or web address]
--- NOTE | 2018-10-27 17:30 | RADIOLOGY REPORT (SQ) ---
EXAM DESCRIPTION: CT LUMBAR SPINE WITHOUT COMPLETED DATE/TIME: 10/27/2018 4:56 pm REASON FOR STUDY: fall COMPARISON: None. TECHNIQUE: Axial images acquired through the lumbar spine without intravenous contrast. Images revi ewed with lung, soft tissue and bone windows. Reconstructed coronal and sagittal MPR images reviewed . All images stored on PACS. All CT scanners at this facility use dose modulation, iterative reconstruction, and/or weight based d osing when appropriate to reduce radiation dose to as low as reasonably achievable (ALARA). [facility]: Dose Right [facility]: CareDose [facility]: Dose Right [facility]: Teradose 4D [facility]: [employer] RADIATION DOSE: CT Rad equipment meets quality standard of care and radiation dose reduction techniq ues were employed. CTDIvol: 9.9 mGy. DLP: 319 mGy-cm. mGy. LIMITATIONS: None. FINDINGS: SEGMENTATION: Normal. No transitional anatomy. ALIGNMENT: Mild dextroscoliosis. VERTEBRAL BODIES: No fractures. There is a large Schmorl's node in the inferior endplate of L2. DISCS: Multilevel degenerative disc narrowing. Marginal osteophytes are present. There is central c anal stenosis at L2-3 secondary to concentric disc bulging and mild facet and ligament hypertrophy. There is mild central canal stenosis similarly at L3-4 and at L4-5. Evaluation is limited by lack of intrathecal contrast. PEDICLES, TRANSVERSE PROCESSES: There are fractures of the transverse processes of L2 and L3 on the r ight of uncertain age. FACETS, POSTERIOR ELEMENTS: No fractures. No dislocation. No spinal stenosis. HARDWARE: None in the spine. VISUALIZED RIBS: No fractures. SOFT TISSUES: No significant or acute finding in adjacent soft tissues. OTHER: No other significant finding. IMPRESSION: Large Schmorl's node at L2. 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 Likely subacute fractures of the right transverse processes of L2 and L3. Findings as describ ed. TECHNICAL DOCUMENTATION: JOB ID: [id number] Quality ID # [id number]: Final reports with documentation of one or more dose reduction techniques (e.g., Au tomated exposure control, adjustment of the mA and/or kV according to patient size, use of iterative reconstruction technique) 2010 [employer]- All Rights Reserved Reading location - IP/workstation name: [email or web address]
[2018-10-27 18:12] LABS: HEMATOCRIT 32.9 % (36.0-47.0); HEMOGLOBIN 10.9 g/dL (12.0-15.5); MEAN CORPUSCULAR HEMOGLOBIN 32.4 pg (27.0-33.4); MEAN CORPUSCULAR HGB CONC 33.1 g/dL (32.0-36.0); MEAN CORPUSCULAR VOLUME 98 fl (80-97); PLATELET COUNT 195 10^3/uL (150-450); RED BLOOD COUNT 3.36 10^6/uL (3.72-5.28); RED CELL DISTRIBUTION WIDTH 15.6 % (11.5-14.0); WHITE BLOOD COUNT 17.4 10^3/uL (4.0-10.5)
[2018-10-27 18:29] LABS: ALBUMIN 3.8 g/dL (3.5-5.0); ALKALINE PHOSPHATASE 120 U/L (38-126); ANION GAP 15 (5-19); ASPARTATE AMINO TRANSFERASE 67 U/L (14-36); BILIRUBIN,DIRECT 0.5 mg/dL (0.0-0.4); BILIRUBIN,TOTAL 0.5 mg/dL (0.2-1.3); BLOOD UREA NITROGEN 23 mg/dL (7-20); CALCIUM 8.7 mg/dL (8.4-10.2); CARBON DIOXIDE 26 mmol/L (22-30); CHLORIDE 94 mmol/L (98-107); GLUCOSE 198 mg/dL (75-110); POTASSIUM 4.5 mmol/L (3.6-5.0); TOTAL PROTEIN 6.7 g/dL (6.3-8.2)
[2018-10-27 18:30] LABS: ABSOLUTE LYMPHOCYTES# (MANUAL) 0.7 10^3/uL (0.5-4.7); ABSOLUTE MONOCYTES # (MANUAL) 0.7 10^3/uL (0.1-1.4); BASOPHILS % (MANUAL) 0 % (0-2); EOSINOPHILS % (MANUAL) 0 % (0-6); LYMPHOCYTES % (MANUAL) 4 % (13-45); MONOCYTES % (MANUAL) 4 % (3-13); SEGMENTED NEUTROPHILS % (MAN) 92 % (42-78); TOTAL CELLS COUNTED 100
[2018-10-27 18:34] LABS: ANISOCYTOSIS SLIGHT; OVALOCYTES SLIGHT; PLATELET COMMENT ADEQUATE; POIKILOCYTOSIS SLIGHT; TARGET CELLS SLIGHT; TEAR DROP CELLS SLIGHT; TOXIC GRANULATION 1+; TOXIC VACUOLATION PRESENT
--- NOTE | 2018-10-27 19:36 | RADIOLOGY REPORT (SQ) ---
EXAM DESCRIPTION: VENOUS UNILATERAL LOWER COMPLETED DATE/TIME: 10/27/2018 6:54 pm REASON FOR STUDY: left lower leg swelling COMPARISON: None. 07/31/2018 TECHNIQUE: Dynamic and static harris scale and color images acquired of the left leg venous system. Se lected spectral images acquired with additional compression and augmentation maneuvers. The contralat eral common femoral vein and saphenofemoral junction were also imaged. Images stored on PACS. LIMITATIONS: None. FINDINGS: COMMON FEMORAL: Normal phasicity, compression and augmentation. No visualized echogenic ma terial on harris scale. No defects on color images. FEMORAL: Normal compression and augmentation. No visualized echogenic material on harris scale. No defe cts on color images. POPLITEAL: Normal compression, augmentation. No visualized echogenic material on harris scale. No defec ts on color images. CALF VESSELS: Normal compression, augmentation. No visualized echogenic material on harris scale. No de fects on color images. GSV and SSV: Normal compression, augmentation. No visualized echogenic material on harris scale. No def ects on color images. ANY DEEP VENOUS INSUFFICIENCY: Not evaluated. ANY EVIDENCE OF POPLITEAL CYST: No. OTHER: No other significant finding. CONTRALATERAL COMMON FEMORAL VEIN AND SAPHENOFEMORAL JUNCTION: Normal phasicity, compression and augmentation. No visualized echogenic material on harris scale. No de fects on color images. IMPRESSION: NO EVIDENCE DVT OR SVT IN THE LEFT LEG. TECHNICAL DOCUMENTATION: JOB ID: [id number] [email or web address] Rights Reserved Reading location - IP/workstation name: [email or web address]
[2018-10-27 19:38] LABS: AMORPHOUS SEDIMENT,URINE TRACE /HPF; APPEARANCE,URINE CLOUDY; BILIRUBIN,URINE SMALL (NEGATIVE); COLOR,URINE AMBER; GLUCOSE, URINE NEGATIVE (NEGATIVE); KETONES,URINE NEGATIVE (NEGATIVE); LEUKOCYTE ESTERASE,URINE LARGE (NEGATIVE); NITRITE,URINE NEGATIVE (NEGATIVE); PROTEIN,URINE 30 mg/dL (NEGATIVE); UROBILINOGEN,URINE NEGATIVE mg/dL (<2.0)
--- NOTE | 2018-10-27 21:41 | RADIOLOGY REPORT (SQ) ---
EXAM DESCRIPTION: Portable chest x-ray CLINICAL HISTORY: 83 years Female, COUGH COMPARISON: 09/24/2018. FINDINGS: Mild cardiomegaly. No suspicious mediastinal widening. No acute lung or pleural abnormalities. 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 IMPRESSION: Mild cardiomegaly. No acute findings in the chest. Chronic abnormalities of both shoulders.
[2018-10-27] MEDS ORDERED: CIPROFLOXACIN HCL 500 MG TABLET PO ONE (21:49)
[2018-10-27] MEDS ORDERED: ACETAMINOPHEN 325 MG TABLET PO ONE (21:51)
[2018-10-27 23:21] VITALS: BP 105/65
== END 2018-10-27 23:21 | disposition home or self-care (01) ==
LOC: ER 14:13
DX: N30.00 Acute cystitis without hematuria (principal); D72.829 Elevated white blood cell count, unspecified; M54.5 Low back pain; S32.009A Unspecified fracture of unspecified lumbar vertebra, initial encounter for closed fracture; M25.552 Pain in left hip; M79.605 Pain in left leg; F03.90 Unspecified dementia, unspecified severity, without behavioral disturbance, psychotic disturbance, mood disturbance, and anxiety; E10.22 Type 1 diabetes mellitus with diabetic chronic kidney disease; I13.2 Hypertensive heart and chronic kidney disease with heart failure and with stage 5 chronic kidney disease, or end stage renal disease; I50.9 Heart failure, unspecified; N18.6 End stage renal disease; E78.00 Pure hypercholesterolemia, unspecified; Z88.0 Allergy status to penicillin; Z99.2 Dependence on renal dialysis
CPT/HCPCS: 36415; 87040; 87086; 85025; 87088; 80053; 81001; 93971; 73610; 71045; 73522; 70450; 72125; 72131; A9270 ×2; 87186; 99284